=== PATIENT | male | born 1960 | race Caucasian/White ===

== ENCOUNTER 2018-12-16 15:04 | Inpatient (IN) | payer MEDICAID, OTHER ==
[~2018-12-16 15:04] MED LIST: Buffered Lidocaine 1% SYRIN* 1 ML/SYRINGE INTRADERM ONE; Lactated Ringers 1000 ML Bag* 1,000 ML IV SCH
[2018-12-16] MEDS ORDERED: fentaNYL* 50 MCG/ML 2 ML VIAL (100 MCG VIAL) ONE ×3 (16:18→20:28)
[2018-12-16] MEDS ORDERED: Midazolam* 1 MG/ML 2 ML VIAL (2 MG) ONE ×3 (16:18→19:41)
[2018-12-16] MEDS ORDERED: Propofol* 10 MG/ML 20 ML BTL ONE (16:19)
[2018-12-16] MEDS ORDERED: Naloxone* 0.4 MG/ML 1 ML VIAL IV PRN (16:41)
[2018-12-16] MEDS ORDERED: DiMENhydriNATE IV* 50 MG/ML VIAL IV PUSH PRN (16:41)
[2018-12-16] MEDS ORDERED: Ondansetron INJ* 2 MG/ML VIAL IV PRN ×2 (16:41→20:02)
[2018-12-16] MEDS ORDERED: Acetaminophen TAB* 325 MG PO PRN (16:41)
[2018-12-16] MEDS ORDERED: Dextrose 50% Syringe 50 ML* 25 GM/50 ML SYRINGE IV PUSH ONE (16:55)
[2018-12-16] MEDS ORDERED: Clindamycin 900 MG IVPREMIX(* 900 MG/50 ML SDV IV ONE (16:57)
[2018-12-16] MEDS ORDERED: Dextrose 50% Syringe 50 ML* 25 GM/50 ML SYRINGE ONE (16:58)
[2018-12-16] MEDS ORDERED: KETAMINE HCL* 50 MG/ML 10 ML VIAL ONE (19:11)
[2018-12-16] MEDS ORDERED: Diazepam INJ (NF) 5 MG/ML 10 ML VIAL (50 MG TOTAL) IV ONE (19:42)
[2018-12-16] MEDS ORDERED: Polyethylene Glycol 3350* 17 GM PACKET PO PRN (20:02)
[2018-12-16] MEDS ORDERED: diPHENhydraMINE IV* 50 MG/ML 1 ml VIAL (BENADRYL) IV PRN (20:02)
[2018-12-16] MEDS ORDERED: Ondansetron TAB* 4 MG PO PRN (20:02)
[2018-12-16] MEDS ORDERED: Bisacodyl SUPP* 10 MG SUPP PR PRN (20:02)
[2018-12-16] MEDS ORDERED: Magnesium Hydroxide LIQ* 30 ML UDC PO PRN (20:02)
[2018-12-16] MEDS ORDERED: oxyCODONE/Acetamin 5/325 MG* TAB PO ONE (20:09)
[2018-12-16] MEDS ORDERED: oxyCODONE/Acetamin 5/325 MG* TAB ONE (20:28)
[2018-12-16] MEDS: oxyCODONE/Acetamin 5/325 MG* TAB PO PRN (20:30)
[2018-12-16] MEDS: fentaNYL* 50 MCG/ML 2 ML VIAL (100 MCG VIAL) IV PRN ×2 (20:32→20:41)
[2018-12-16] MEDS: Diazepam TAB(*) 5 MG PO ONE ×2 (21:30→23:52)
[2018-12-16] MEDS ORDERED: Dextrose 50% Syringe 50 ML* 25 GM/50 ML SYRINGE IV PUSH PRN (21:57)
[2018-12-16] MEDS ORDERED: Albuterol/Ipratropium NEB.SOL* Albuterol 2.5 MG/Ipratropium 0.5 MG 3 ML INH PRN (21:58)
[2018-12-16] MEDS: Lactated Ringers 1000 ML Bag* 1,000 ML IV SCH (23:12)
[2018-12-16] MEDS: Morphine INJ* 2 MG/ML 1 ML SYRINGE (TWO MG - NEW SYRINGE VERSION) IV PRN (23:15)
[2018-12-16] MEDS: Acetaminophen TAB* 325 MG PO SCH (23:51)
[2018-12-17] MEDS: Magnesium Hydroxide LIQ* 30 ML UDC PO SCH ×3 (00:11→22:05)
[2018-12-17] MEDS: Docusate CAP* 100 MG PO SCH ×3 (00:11→22:04)
--- NOTE | 2018-12-17 00:22 | CONS ---
C: Dr. Angelic Fonseca; Dr. Micky Whalen * CONSULTATION REPORT: DATE OF CONSULT: 12/16/18 PRIMARY CARE PROVIDER: Dr. Angelic Fonseca. MY ATTENDING WHILE IN THE HOSPITAL: Dr. Lyndsay Metz. CONSULTING PROVIDER: Dr. Micky Whalen. REASON FOR CONSULTATION: Co-management of comorbid medical conditions. HISTORY OF PRESENT ILLNESS: Mr. Houston is a 58-year-old male with past medical history significant for cerebral palsy with left hemiplegia, diabetes, COPD and hypertension, who is status post a right patellar tendon repair. The patient was examined in the postoperative period. The patient states that the pain in his leg is 9/10 despite the fact that he has not regained total feeling in his leg from his spinal anesthesia. The patient states that the pain medication he has been given has not helped at all. The patient denies chest pain, shortness of breath, nausea, vomiting, dizziness, palpitations. The patient has not had any recent illnesses, any sick contacts, any fevers or chills, any decrease in exercise tolerance although the patient does use a wheelchair for the most of his mobility. The patient has not taken any insulin today. The patient took his glargine insulin last night and did not take any of his medications this morning. The patient denies any wheezing, cough, or swelling in his legs or difficulty breathing when lying flat. PAST MEDICAL HISTORY: Cerebral palsy, left hemiplegia, diabetes, hypertension, depression, COPD on oxygen, hypothyroidism. PAST SURGICAL HISTORY: History of 2 triple arthrodesis, history of right Achilles tendon repair, appendectomy, right orchiectomy. MEDICATIONS: 1. Ibuprofen 400 mg p.o. q.8 hours as needed. 2. Atorvastatin 80 mg p.o. at bedtime. 3. Omeprazole 20 mg p.o. b.i.d. 4. Multivitamin 1 tab p.o. q.a.m. 5. Levothyroxine 137 mcg p.o. q.a.m. 6. Mirapex 0.25 mg p.o. q.a.m. 7. Dyazide 37.5/25 one cap p.o. q.a.m. 8. Aspirin 81 mg p.o. daily. 9. Metformin 500 mg p.o. t.i.d. 10. Lisinopril 10 mg p.o. q.a.m. 11. Tradjenta 5 mg p.o. q.p.m. 12. Tylenol 500 mg p.o. q.8 hours as needed. 13. Docusate 1 tab p.o. b.i.d. as needed. 14. Viagra 25 mg p.o. as needed. 15. Fiber-Lax 625 mg p.o. q.a.m. 16. Sertraline 20 mg p.o. q.a.m. 17. Clonazepam 0.5 mg p.o. t.i.d. 18. Meloxicam 50 mg p.o. q.a.m. 19. Baclofen 20 mg p.o. t.i.d. 20. Gabapentin 300 mg p.o. t.i.d. 21. Hydroxyzine 25 to 50 mg p.o. b.i.d. as needed. 22. Insulin glargine 15 units subcutaneous at bedtime. ALLERGIES: BENZTROPINE, HALOPERIDOL, HYDROMORPHONE, NSAIDS, MORPHINE, LORATADINE, SELDANE, PENICILLINS, CODEINE, COGENTIN, IV DYE, LACTOSE. FAMILY HISTORY: The patient's mother of COPD. The patient's father of old age. The patient has 3 siblings, all of whom have only orthopedic complaints. SOCIAL HISTORY: The patient still smokes 5 cigarettes a day. The patient has a long history of smoking, but he cannot quantify in pack years. The patient denies history of alcohol or drug abuse. The patient's surrogate decision maker will be his friend, Dora Mendoza. The patient is wheelchair bound and does not work. REVIEW OF SYSTEMS: A 14-point review of systems was reviewed and is negative, except as above in the HPI. PHYSICAL EXAM: General: The patient is a 58-year-old male who appears stated age and sitting comfortably in bed, in no acute distress. Vital Signs: Temperature 98.9, respiratory rate 16, oxygen saturation 97% on 2 L, blood pressure 143/74, pulse rate 65. Neck: Supple, nontender. No lymphadenopathy. No carotid bruits auscultated. No JVD. Cardiac: Regular rate and rhythm. No clicks, murmurs, gallops, or rubs. Pulses are 2+ in bilateral dorsalis pedis , posterior tibialis and radial areas. Respiratory: Clear to auscultation bilaterally. No wheezes, slight expiratory rhonchi heard in the bilateral lower lobes. No adventitious lung sounds. Abdomen: Soft, nontender, and nondistended. Bowel sounds present in all 4 quadrants. No hepatosplenomegaly. No abdominal bruits auscultated. No hepatojugular reflux. Genitourinary: No suprapubic or CVA tenderness. Skin: Clean, dry and intact. No rash. Right knee covered in bulky dressing. Neuro: Cranial nerves II through XII intact. Left arm and leg atrophied with 1/5 strength. Decreased sensation in the right lower extremity. Psychiatric: Pleasant and cooperative. DIAGNOSTIC STUDIES/LAB DATA: Laboratory data preoperatively not performed. ASSESSMENT AND PLAN: Impression: Mr. Houston is a 58-year-old male with past medical history significant for cerebral palsy, diabetes mellitus type 2, chronic obstructive pulmonary disease and hypertension, who is status post a right patellar tendon repair and is doing well. 1. Postoperative state. Management per Orthopedics. Continue with pain control, bowel regimen, fluids until the patient is able to take adequate oral intake, check H and H, platelet count, and BMP in the morning. The patient will have PT and OT. 2. Cerebral palsy with left hemiplegia. Physical therapy and occupational therapy as above to manage chronic problems of the patient. 3. Diabetes. The patient had hypoglycemia in the postoperative period at 65, which resolved with eating. The patient most recently took 85 units of Lantus approximately 24 hours ago. Now, the patient will be continued on a decreased dose of his Lantus given likely decreased oral intake as well as sliding scale insulin. The patient can be resumed on his home antihyperglycemic medications at discharge. 4. Hypertension. We will hold the patient's Dyazide and lisinopril at this time given propensity for hypotension with spinal anesthesia. These may resumed when indicated. 5. Depression. Continue the patient's Celexa. The patient is currently euthymic. 6. Hypothyroidism. Continue the patient's Synthroid. 7. Chronic obstructive pulmonary disease. The patient takes no medications for this at home. The patient will have albuterol as needed. 8. DVT prophylaxis. The patient will be on aspirin 325 mg p.o. b.i.d. 9. Hyperlipidemia. Continue the patient's Lipitor. 10. FEN. The patient will have a regular unrestricted diet and fluids until able to tolerate adequate oral intake. 11. Disposition per Orthopedics. 12. Code status: The patient would like to be a full code. TIME SPENT: Approximately 60 minutes was spent on this consultation, 30 of which was spent [id number] with the patient, obtaining history and physical, and discussing treatment plan. Plan was discussed with my attending, Dr. Lyndsay Metz, and she is in agreement. Thank you very much for this consultation. We will continue to follow along with you. Feel free to call with any questions. FORD RIVERA [id number]/[facility] #: [id number] SIMONE
[2018-12-17] MEDS: Clindamycin 600 MG IVPREMIX(* 600 MG/50 ML SDV IV SCH ×3 (02:26→19:38)
[2018-12-17] MEDS: Acetaminophen TAB* 325 MG PO SCH ×3 (05:26→22:05)
[2018-12-17] MEDS: Levothyroxine TAB* 137 MCG TAB PO SCH (05:26)
[2018-12-17 06:45] LABS: Hematocrit 36 % (36-46); Hemoglobin 11.7 g/dL (14.0-18.0); Mean Platelet Volume 7.9 fL (7.4-10.4); Platelet Count 252 10^3/uL (150-450)
[2018-12-17 07:00] LABS: BUN/Creatinine Ratio 26.4 (8-20); Calcium 8.7 mg/dL (8.6-10.3); EGFR African American 82.6 (>60); EGFR Non-African American 68.3 (>60); Potassium 4.6 mmol/L (3.5-5.0)
--- NOTE | 2018-12-17 07:05 | PN ---
Progress Note - Progress Note Date of Service: 12/17/18 SOAP: Subjective: resting comfortably. pain well controlled Objective: Vital Signs Temp Pulse Resp BP Pulse Ox 99.2 F 66 16 147/71 100 12/17/18 00:16 12/17/18 00:16 12/17/18 00:19 12/17/18 00:16 12/17/18 00:16 Laboratory Last Values Hgb 11.7 g/dL (14.0-18.0) L 12/17/18 06:06 Hct 36 % (36-46) 12/17/18 06:06 Plt Count 252 10^3/uL (150-450) 12/17/18 06:06 MPV 7.9 fL (7.4-10.4) 12/17/18 06:06 Sodium 137 mmol/L (135-145) 12/17/18 06:06 Potassium 4.6 mmol/L (3.5-5.0) 12/17/18 06:06 Chloride 103 mmol/L (101-111) 12/17/18 06:06 Carbon Dioxide 27 mmol/L (22-32) 12/17/18 06:06 Anion Gap 7 mmol/L (2-11) 12/17/18 06:06 BUN 29 mg/dL (6-24) H 12/17/18 06:06 Creatinine 1.10 mg/dL (0.67-1.17) 12/17/18 06:06 Est GFR ( Amer) 82.6 (>60) 12/17/18 06:06 Est GFR (Non-Af Amer) 68.3 (>60) 12/17/18 06:06 BUN/Creatinine Ratio 26.4 (8-20) H 12/17/18 06:06 Glucose 257 mg/dL (70-100) H 12/17/18 06:06 POC Glucose (mg/dL) 124 mg/dL (70-100) H 12/16/18 20:11 Calcium 8.7 mg/dL (8.6-10.3) 12/17/18 06:[address]; dressing c/d/i; patient ablet o dorsi flex, 2+ DP pulse and intact sensation Assessment: s/p right patella tendon repair; POD#1 Plan: 1) TTWB RLE for transfers, patient is wheelchair bound 2) immobilizer in place at all times 3) hospitalist co-managing 4) ASA 325MG BIS for DVT prophyalxis 5) post-op Abx for 48 hours
[2018-12-17] MEDS: oxyCODONE/Acetamin 5/325 MG* TAB PO PRN ×2 (07:34→14:37)
[2018-12-17] MEDS: Aspirin TAB* 325 MG PO SCH ×2 (07:35→22:05)
--- NOTE | 2018-12-17 08:40 | PN ---
Subjective Date of Service: 12/17/18 Interval History: Mr. Houston reports feeling tired today but otherwise well. He has a little flair of pain to his right knee from time to time but it is manageable on the current pain med regimen. He denies other complaint including chest pain, SOB, nausea, or abdominal pain. Objective Active Medications: Acetaminophen (Tylenol Tab*) 975 mg PO Q8H [facility]OX[facility] Albuterol (Ventolin 2.5 Mg/3 Ml Neb.Kennedi*) 2.5 mg INH Q4H PRN Aspirin (Aspirin Tab*) 325 mg PO 0900,2100 [facility] Atorvastatin Calcium (Lipitor*) 80 mg PO BEDTIME [facility] Baclofen (Lioresal Tab*) 20 mg PO TID [facility]OX[facility]NA Bisacodyl (Dulcolax Supp*) 10 mg VT DAILY PRN Calcium Polycarbophil (Fibercon Tab*) 625 mg PO QAM [facility] Dextrose (D50w Syringe 50 Ml*) 12.5 gm IV PUSH .FOR FS < 60 - SS PRN Diazepam (Valium Tab(*)) 5 mg PO Q8H PRN Diphenhydramine HCl (Benadryl Iv*) 12.5 mg IV Q6H PRN Docusate Sodium (Colace Cap*) 100 mg PO BID [facility] Gabapentin (Neurontin Cap(*)) 300 mg PO TID [facility] Clindamycin HCl/Dextrose (Cleocin 600 Mg Ivpremix(*) Sdv) 600 mg in 50 mls @ 100 mls/hr IV Q8H [facility] Lactated Ringer's (Lactated Ringers 1000 Ml Bag*) 1,000 mls @ 100 mls/hr IV PER RATE [facility] Insulin Glargine (Lantus(*)) 60 units SUBCUT BEDTIME [facility] Insulin Human Lispro (Humalog*) 0 units SUBCUT ACHS [facility]OX[facility]NA; Protocol Lactulose (Lactulose*) 30 ml PO Q6H PRN Levothyroxine Sodium (Synthroid Tab*) 137 mcg PO 0600 [facility] Magnesium Hydroxide (Milk Of Magnesia Liq*) 30 ml PO BID [facility] Magnesium Hydroxide (Milk Of Magnesia Liq*) 30 ml PO Q6H PRN Morphine Sulfate (Morphine Inj (Syringe))*) 2 mg IV Q2H PRN Ondansetron HCl (Zofran Inj*) 4 mg IV Q6H PRN Ondansetron HCl (Zofran Tab*) 4 mg PO Q6H PRN Oxycodone/Acetaminophen (Percocet 5/325 Tab*) 1 tab PO Q4H PRN Oxycodone/Acetaminophen (Percocet 5/325 Tab*) 2 tab PO Q4H PRN Pantoprazole Sodium (Protonix Tab*) 40 mg PO BID [facility] Polyethylene Glycol/Electrolytes (Miralax*) 17 gm PO DAILY PRN Pramipexole Dihydrochloride (Mirapex Tab*) 0.25 mg PO QAM [facility] Sertraline HCl (Zoloft*) 200 mg PO QAM [facility] Vital Signs: Temp Pulse Resp BP Pulse Ox 98.1 F 82 20 129/59 95 12/17/18 07:30 12/17/18 07:30 12/17/18 07:53 12/17/18 07:30 12/17/18 07:53 Oxygen Devices in Use Now: None Appearance: male sitting up in chair in NAD Ears/Nose/Mouth/Throat: Mucous Membranes Moist Neck: Trachea Midline Respiratory: Symmetrical Chest Expansion and Respiratory Effort, Clear to Auscultation Cardiovascular: NL Sounds; No Murmurs; No JVD, No Edema Abdominal: NL Sounds; No Tenderness; No Distention Lymphatic: No Axillary Adenopathy Skin: No Rash or Ulcers Neurological: Alert and Oriented x 3, - - Atrophy noted to left arm and leg, 1/ 5 strength. Strength intact R UE, CMS intact R LE Nutrition: Taking PO's Result Diagrams: 12/17/18 06:06 12/17/18 06:06 Assess/Plan/Problems-Billing Assessment: Mr. Houston is a 58 yo male with a PMH of cerebral palsy, left hemiplegia, hypertension, depression, CHUY on CPAP who was admitted on for a right patellar tendon repair secondary to fall from wheelchair. - Patient Problems (1) Patellar tendon rupture Comment: - POD # 1 s/p repair - Management per ortho - TTWB R LE for transfers, patient is wheelchair bound, immobilizer on at all times (2) Hypertension Comment: - SBP 120s. - Hold triamterine/hctz and lisinopril for now (3) Diabetes Comment: - BGs 210-260s - Increase lantus to home dose (85 units), continue SSI - Hold tradjenta and metformin until discharge (4) Depression Comment: - Continue sertraline (5) Hypothyroidism Comment: - Continue levothyroxine (6) Hyperlipidemia Comment: - Continue atorvastatin (7) Cerebral palsy Comment: - Continue baclofen, diazepam (8) CHUY (obstructive sleep apnea) Comment: - Continue cpap (9) DVT prophylaxis Comment: - Aspirin per ortho. (10) Full code status Comment: Status and Disposition: Inpatient with disposition per ortho. Anticipate need for short term rehab.
[2018-12-17] MEDS ORDERED: clonazePAM TAB(*) 0.5 MG PO SCH (09:00)
[2018-12-17] MEDS: Gabapentin CAP(*) 300 MG PO SCH ×3 (09:09→22:04)
[2018-12-17] MEDS: Pramipexole TAB* 0.125 MG PO SCH (09:09)
[2018-12-17] MEDS: Pantoprazole TAB * 40 MG TAB PO SCH ×2 (09:09→22:04)
[2018-12-17] MEDS: Baclofen TAB* 20 MG PO SCH ×3 (09:09→22:04)
[2018-12-17] MEDS: Calcium Polycarbophil TAB* 625 MG PO SCH (09:09)
[2018-12-17] MEDS: Sertraline* 100 MG TAB PO SCH (09:09)
[2018-12-17] MEDS: Insulin LISPRO* 1 UNITS UNIT SUBCUT SCH ×4 (09:11→23:23)
--- NOTE | 2018-12-17 18:15 | PN ---
Progress Note - Progress Note Date of Service: 12/17/18 Note: Called to bedside for patient complaining of SOB and chest heaviness. On exam, patient not in distress or overtly short of breath. Reports he was feeling well until about 30 minutes ago when he started to feel chest heaviness and SOB. He confirms abdominal distention with some generalized tenderness to palpation. Lungs with minimal wheezing bilaterally otherwise good aeration. Heart with S1, S2, no MRG, regular. Vitals stable, not hypoxic or tachycardic. Plan for EKG, troponin. Eval abd with 2 view xray. Treat wheezing with albuterol neb. Monitor closely.
[2018-12-17] MEDS: Albuterol 2.5 MG/3 ML NEB.SOL* (0.083%) INH PRN (18:19)
[2018-12-17] MEDS: Lactated Ringers 1000 ML Bag* 1,000 ML IV SCH (20:42)
[2018-12-17] MEDS ORDERED: Insulin GLARGINE(*) 1 UNITS UNIT SUBCUT SCH (21:00)
[2018-12-17] MEDS: Atorvastatin* 80 MG TAB PO SCH (22:03)
[2018-12-17] MEDS: Insulin GLARGINE(*) 1 UNITS UNIT SUBCUT SCH (22:07)
[2018-12-18] MEDS: oxyCODONE/Acetamin 5/325 MG* TAB PO PRN ×4 (05:10→22:08)
[2018-12-18] MEDS: Acetaminophen TAB* 325 MG PO SCH ×3 (06:03→21:34)
[2018-12-18] MEDS: Levothyroxine TAB* 137 MCG TAB PO SCH (06:06)
[2018-12-18 06:22] LABS: Hematocrit 35 % (36-46); Hemoglobin 11.4 g/dL (14.0-18.0); Platelet Count 222 10^3/uL (150-450)
[2018-12-18] MEDS: Magnesium Hydroxide LIQ* 30 ML UDC PO SCH ×2 (07:53→22:12)
[2018-12-18] MEDS: Aspirin TAB* 325 MG PO SCH ×2 (07:54→22:10)
[2018-12-18] MEDS: Pramipexole TAB* 0.125 MG PO SCH (07:54)
[2018-12-18] MEDS: Diazepam TAB(*) 5 MG PO PRN (07:54)
[2018-12-18] MEDS: Baclofen TAB* 20 MG PO SCH ×3 (07:54→22:08)
[2018-12-18] MEDS: Docusate CAP* 100 MG PO SCH ×2 (07:54→22:10)
[2018-12-18] MEDS: Pantoprazole TAB * 40 MG TAB PO SCH ×2 (07:54→22:11)
[2018-12-18] MEDS: Sertraline* 100 MG TAB PO SCH (07:54)
[2018-12-18] MEDS: Gabapentin CAP(*) 300 MG PO SCH ×3 (07:54→22:10)
[2018-12-18] MEDS: Calcium Polycarbophil TAB* 625 MG PO SCH (07:54)
--- NOTE | 2018-12-18 08:34 | PN ---
Progress Note - Progress Note Date of Service: 12/18/18 SOAP: Subjective: resting comfortably, increased right knee this am Objective: Vital Signs Temp Pulse Resp BP Pulse Ox 99.6 F 79 22 113/60 91 12/18/18 03:36 12/18/18 03:36 12/18/18 07:54 12/18/18 03:36 12/18/18 03:36 Laboratory Last Values Hgb 11.4 g/dL (14.0-18.0) L 12/18/18 05:48 Hct 35 % (36-46) L 12/18/18 05:48 Plt Count 222 10^3/uL (150-450) 12/18/18 05:48 MPV 8.0 fL (7.4-10.4) 12/18/18 05:48 Sodium 137 mmol/L (135-145) 12/17/18 06:06 Potassium 4.6 mmol/L (3.5-5.0) 12/17/18 06:06 Chloride 103 mmol/L (101-111) 12/17/18 06:06 Carbon Dioxide 27 mmol/L (22-32) 12/17/18 06:06 Anion Gap 7 mmol/L (2-11) 12/17/18 06:06 BUN 29 mg/dL (6-24) H 12/17/18 06:06 Creatinine 1.10 mg/dL (0.67-1.17) 12/17/18 06:06 Est GFR ( Amer) 82.6 (>60) 12/17/18 06:06 Est GFR (Non-Af Amer) 68.3 (>60) 12/17/18 06:06 BUN/Creatinine Ratio 26.4 (8-20) H 12/17/18 06:06 Glucose 257 mg/dL (70-100) H 12/17/18 06:06 POC Glucose (mg/dL) 148 mg/dL (70-100) H 12/18/18 07:37 Calcium 8.7 mg/dL (8.6-10.3) 12/17/18 06:06 Troponin I 0.01 ng/mL (<0.04) 12/17/18 18:20 incision: c/d; dressing changed PE: NVI Assessment: s/p right patella tendon repair Plan: 1) PT/OT; TTWB for transfers, leg in extension/immobilizer at all times 2) ASA 325MG BID for DVT prophylaxis 3) post-op abx for 48 hours
--- NOTE | 2018-12-18 08:51 | PN ---
Subjective Date of Service: 12/18/18 Interval History: Mr. Houston had an episode last evening of SOB and chest discomfort which he states has resolved. He reports that his last BM was on Wednesday but feels that his abdomen is a bit distended. He is tolerating oral intake well. He denies other complaint including chest pain, SOB, nausea, or abdominal pain. He reports that his knee pain is well controlled. Objective Active Medications: Acetaminophen (Tylenol Tab*) 975 mg PO Q8H [facility] Albuterol (Ventolin 2.5 Mg/3 Ml Neb.Kennedi*) 2.5 mg INH Q4H PRN Aspirin (Aspirin Tab*) 325 mg PO 0900,2100 [facility] Atorvastatin Calcium (Lipitor*) 80 mg PO BEDTIME [facility] Baclofen (Lioresal Tab*) 20 mg PO TID [facility] Bisacodyl (Dulcolax Supp*) 10 mg IN DAILY PRN Calcium Polycarbophil (Fibercon Tab*) 625 mg PO QAM [facility] Dextrose (D50w Syringe 50 Ml*) 12.5 gm IV PUSH .FOR FS < 60 - SS PRN Diazepam (Valium Tab(*)) 5 mg PO Q8H PRN Diphenhydramine HCl (Benadryl Iv*) 12.5 mg IV Q6H PRN Docusate Sodium (Colace Cap*) 100 mg PO BID [facility] Gabapentin (Neurontin Cap(*)) 300 mg PO TID [facility] Lactated Ringer's (Lactated Ringers 1000 Ml Bag*) 1,000 mls @ 100 mls/hr IV PER RATE [facility] Insulin Glargine (Lantus(*)) 85 units SUBCUT BEDTIME [facility] Insulin Human Lispro (Humalog*) 0 units SUBCUT ACHS [facility]; Protocol Lactulose (Lactulose*) 30 ml PO Q6H PRN Levothyroxine Sodium (Synthroid Tab*) 137 mcg PO 0600 [facility] Magnesium Hydroxide (Milk Of Magnesia Liq*) 30 ml PO BID [facility] Magnesium Hydroxide (Milk Of Magnesia Liq*) 30 ml PO Q6H PRN Morphine Sulfate (Morphine Inj (Syringe))*) 2 mg IV Q2H PRN Ondansetron HCl (Zofran Inj*) 4 mg IV Q6H PRN Ondansetron HCl (Zofran Tab*) 4 mg PO Q6H PRN Oxycodone/Acetaminophen (Percocet 5/325 Tab*) 1 tab PO Q4H PRN Oxycodone/Acetaminophen (Percocet 5/325 Tab*) 2 tab PO Q4H PRN Pantoprazole Sodium (Protonix Tab*) 40 mg PO BID [facility] Polyethylene Glycol/Electrolytes (Miralax*) 17 gm PO DAILY PRN Pramipexole Dihydrochloride (Mirapex Tab*) 0.25 mg PO QAM [facility] Sertraline HCl (Zoloft*) 200 mg PO QAM [facility] Vital Signs: Temp Pulse Resp BP Pulse Ox 99.6 F 79 22 113/60 91 12/18/18 03:36 12/18/18 03:36 12/18/18 07:54 12/18/18 03:36 12/18/18 03:36 Oxygen Devices in Use Now: Nasal Cannula Appearance: Male lying in bed in NAD Eyes: No Scleral Icterus Ears/Nose/Mouth/Throat: Mucous Membranes Moist Neck: Trachea Midline Respiratory: Symmetrical Chest Expansion and Respiratory Effort, Clear to Auscultation Cardiovascular: NL Sounds; No Murmurs; No JVD, No Edema Abdominal: NL Sounds; No Tenderness; No Distention Extremities: - - + CMS right LE Neurological: Alert and Oriented x 3 - L UE/LE atrophic Nutrition: Taking PO's Result Diagrams: 12/18/18 05:48 12/17/18 06:06 Assess/Plan/Problems-Billing Assessment: Mr. Houston is a 58 yo male with a PMH of cerebral palsy, left hemiplegia, hypertension, depression, CHUY on CPAP who was admitted on for a right patellar tendon repair secondary to fall from wheelchair. - Patient Problems (1) Patellar tendon rupture Comment: - POD # 1 s/p repair - Management per ortho - TTWB R LE for transfers, patient is wheelchair bound, immobilizer on at all times - Continue pain meds with bowel regimen, multiple bowel agents given today (2) SOB (shortness of breath) Comment: - Resolved - Episode of SOB with CP last evening, some wheezing noted, albuterol given, no wheezing noted today - Trop 0.01, no evidence of ischemia on EKG (3) Hypertension Comment: - SBP 120-140s. - Resume triamterine/hctz and lisinopril (4) Diabetes Comment: - BGs 140-220s - Continue home dose lantus, continue SSI - Hold tradjenta and metformin until discharge (5) Depression Comment: - Continue sertraline (6) Hypothyroidism Comment: - Continue levothyroxine (7) Hyperlipidemia Comment: - Continue atorvastatin (8) Cerebral palsy Comment: - Continue baclofen, diazepam (9) CHUY (obstructive sleep apnea) Comment: - Continue cpap (10) DVT prophylaxis Comment: - Aspirin per ortho. (11) Full code status Comment: Status and Disposition: Inpatient with disposition per ortho. Anticipate need for short term rehab.
--- NOTE | 2018-12-18 09:04 | OP ---
OPERATIVE NOTE: DATE OF OPERATION: 12/16/18 DATE OF : 56 SURGEON: Micky Whalen MD. MARKETING PROFESSOR: FORD Lilly. A physician carpenter assistant was required for the length of the procedure for assistance with positioning, instrumentation, retraction, and closure. ANESTHESIOLOGIST: Dr. Blayne oBne. ANESTHESIA: Spinal anesthesia. PRE-OP DIAGNOSES: 1. Right patellar tendon rupture, subacute. 2. Right distal patella fracture. 3. Cerebral palsy. POST-OP DIAGNOSIS: 1. Right patellar tendon rupture, subacute. 2. Right distal patella fracture. 3. Cerebral palsy. OPERATIVE PROCEDURE: 1. Right open patellar tendon repair, subacute. 2. Modifier #22, given the usual, complex nature of the procedure making the procedure take twice as long as it would normally and require much more thought and preparation. The reason for the complexity were the subacute nature of this injury with the surgery happening 4 weeks and 3 days after the injury was sustained; as well this was not a simple patella tendon rupture as it was actually a fracture of the distal most nose of the patella. So, some removal of bone from the patella was required, as well there was some small amount of comminuted fracture of bone off the inferolateral patella as well the patient has high muscle tone given his cerebral palsy, although the cerebral palsy predominantly affects its contralateral left upper and left lower extremity. ANTIBIOTICS: Clindamycin 900 mg IV. IV FLUIDS: 1500 cc crystalloid. TOURNIQUET TIME: 106 minutes at 300 mmHg. [id number] TIME: 109 minutes. SPECIMEN: None. IMPLANTS: Mitek Gryphon x1, double loaded was utilized, as was 3 suture tunnels in the patella using FiberWire #5 suture from [employer]. ESTIMATED BLOOD LOSS: Minimal. COMPLICATIONS: None. INDICATIONS: The patient is a 58-year-old with cerebral palsy that affects his left upper and left lower extremity such that he is wheelchair bound. Impressively, the patient is able to live independently, but he requires the help of an aide who visits him daily and helps him with transfer from one wheelchair to another and presumably from wheelchair to bed and vice versa. The patient fell on 11/15/18. He was seen by physician offices at [facility] twice. Eventually, he was referred to the Orthopedic Surgery Clinic there and given a diagnosis of patella tendon rupture. He was noted to have a significant proximal migration of the patella. The patient's mechanism had been a fall directly on the anterior aspect of the right knee. When I saw him in the clinic, several days, 3 days preoperatively, the patient had a palpable defect about the proximal patellar tendon, significant elevation of the patella was palpable. The patient had profound weakness with knee extension. The patient's medical history is also significant for bipolar disorder, diabetes, and seizure disorder. On x-ray, we noticed a significant superiorization of the patella, but also two possible calcifications of bony fragments about the distal end of the joint space, near the tibial tubercle. I ordered a stat MRI and planned on surgery as soon as possible because we typically like to do patellar tendon repair surgery within 2 weeks of the injury itself. MRI confirmed the diagnosis. While the radiologist read a midsubstance tear, I read it and thought that it was a proximal patellar tendon tear. I noted at least 1 possible fragment of bone present. The patient was scheduled for urgent surgery and so I did his case at the end of day in the evening of 12/16/18. Discussed risks and potential complications with the patient. Given that the patient is living independently and with his functional limitations, we presume he will be admitted postoperatively. DESCRIPTION OF PROCEDURE: In preop holding, the patient signed a written consent. Operative extremity was marked in the preoperative holding. Anesthesia decided, given the patient's multiple problems, that a spinal anesthesia would be most appropriate. The patient was taken back to the operating room. On the operating room table, the anesthesia team performed spinal anesthesia. The patient was then laid supine. A big blanket bump placed under the right hemipelvis. The right lower extremity was prepped and draped. Surgical time-out was performed. Esmarch applied and tourniquet at the thigh was elevated at 300 mmHg. I made an anterior midline longitudinal skin from proximal to the patella to the distal tibial tubercle. I dissected down to the patella. Distal to the patella, there was a significant ball of scar tissue, bursal type at first that I noted. I then noted from the tibial tubercle there was clearly in fact a reasonable patellar tendon tissue. I first sought out to define my tissue planes. I identified the patella as well as the quadriceps tendon proximal to it. I identified the medial and lateral retinaculum which had both sustained transverse tears or lacerations at the level of the patellar tendon injury. I next went to the distal end of the patellar tendon. I mobilized the patellar tendon that had clearly undulated and scarred down distally and shortened. I lengthened it by freeing it up from the scar tissue. At this point, I measured the length of the patellar tendon and I measured it to be 4 to 5 cm long. This was confirmation that the patellar tendon had torn off the patella itself, rather than a mid substance tear and this is a normal length of patellar tendon. I next evaluated the bursal type scar tissue between the patella and the patellar tendon, using finger safe dissection I learned that most of this was of poor quality bursal tissue that practically evaporated. Then there was some significant scar tissue, part of it was from the infrapatellar fat pad. I removed this. I identified the anterior horns of the medial and lateral menisci and respected these. In particular lateral, there was a gout band of scar tissue running longitudinally in the anterior aspect of the knee. This was thought to just be a mixture of fat and scar tissue that had developed as the patient's knee had been resting in a 90- degree flexed posture with significant pain for 4-1/2 weeks. No vital structures were involved and I removed this scar tissue. Evaluating the state of the patellar tendon, I liked what I saw. Pulling the patella distally on the patellar tendon proximally I thought this patellar tendon was indeed repairable. I evaluated the proximal extent of the patellar tendon and noted a fragment of bone in it. It was clear that this was the distal most tip of the nose of the patella. This was much better evidence that this was clearly a proximal rupture of the patellar tendon or really a patella fracture, with a functional tendon rupture. I next proceeded with my patellar tendon repair. I debrided the anterior aspect of the patella. I did so with a curette, rongeur, and a jacy. I noted that the patient had a very gracile, long and thin patella. However, more than that he also appeared to have some of the distal lateral patella missing, consistent with some comminuted fragments of bone being lost there. I had looked throughout the knee for any fragments from this part of the patella and did not find any. I next made my 3 bone tunnels with a 2 mm drill. I placed sutures in these tunnels, each PDS 2.0. These would be passing sutures later. I then placed 2 [place] stitches in the patellar tendon using FiberWire #5 suture. I noted that the patellar tendon was longer medially than laterally. I passed sutures from the tunnels in the patella. I really liked the patellar tendon coming to bone medially. I did not like it as much coming to the most lateral of the 3 tunnels. Therefore, I re-drilled the lateral tunnel a little bit closer to the central tunnel. I then replaced a passing stitch and a FiberWire #5 stitch. With the knee fully extended, and the FiberWire #5 sutures manipulated proximally, so that there would be no tissue bridge, I tied my knots. This brought the medial 80% of the tendon excellently to the bone. I would say the lateral most 20% did not quite reach bone. I, therefore, reinforced the lateral side of the repair with 1 Mitek Gryphon suture anchor, double loaded. I placed this more superficial than the bone tunnels in the patella. I placed 2 horizontal mattress stitches in the patellar tendon laterally and this brought the tendon to bone. Irrigation. I next placed a significant volume of stitches using Ethibond #1 suture, figure -of- eight, in the medial retinaculum, the lateral retinaculum and some tissue just superficial to the patella. I chose permanent suture and a high volume of sutures for retinaculum repair given this patient's cerebral palsy and limited mobility, as well as the subacute nature of this tear and repair, such that it would give a significant amount of strength to this repair. Irrigation. Closure of the subcutaneous tissue with buried simple stitches using Vicryl 2-0 suture, closure of the skin with mazin. Xeroform, 4x4s, ABDs, sterile Webril, Mikie bandage from foot to proximal thigh. Tourniquet was dropped. The patient was placed in a knee immobilizer and the knee immobilizer was taped in place. The patient was lightened of sedation and brought to the PACU. DISPOSITION: The patient was admitted postoperatively as we expected. He was admitted for pain control, physical therapy, and medical management. Hospitalist service was consulted. Given the patient's diabetes and multiple medical problems, I placed him on clindamycin 600 mg IV q.8 hours x48 hours postoperatively. I placed him on a standing dose of Valium 500 mg q.8 hours, as my experience is that patella tendon and quadriceps tendon repair patients are significantly painful postoperatively with much muscle spasms. The patient will also received Percocet and morphine as needed for pain. The Valium may help with the cerebral palsy as well. The patient will obtain physical and occupational therapy. His first dressing change will be 3 days postoperatively. The patient will remain in a knee immobilizer at all times in the right lower extremity. He will be only toe-touch weightbearing, right lower extremity, for transfers. I plan on not starting any therapy with that right knee for at least 4 weeks postoperatively. I am less concerned about reestablishing every last bit of knee flexion, range of motion. I am more concerned with the drilling and repair that it does not re - rupture. Given how well the tissues had tightened up preoperatively, the patient's repair was a little bit tighter than these are sometimes. I ranged the patient' s knee after the repair just from 0 to 20 degrees. This did not disrupt any of the repair whatsoever. It was also prior to the retinaculum repair. So, the patient safely ranges only 0 to 20 degrees. I anticipate, however, that this patient should do very well. I will see the patient in 10 to 14 days postoperatively in the clinic. [id number]/[facility] #: [id number] SIMONE
[2018-12-18] MEDS: Insulin LISPRO* 1 UNITS UNIT SUBCUT SCH ×4 (09:44→22:13)
[2018-12-18] MEDS: Atorvastatin* 80 MG TAB PO SCH (22:11)
[2018-12-18] MEDS: Insulin GLARGINE(*) 1 UNITS UNIT SUBCUT SCH (22:12)
[2018-12-18] MEDS: Albuterol 2.5 MG/3 ML NEB.SOL* (0.083%) INH PRN (22:20)
[2018-12-19 05:25] LABS: Hematocrit 35 % (36-46); Hemoglobin 11.5 g/dL (14.0-18.0); Mean Platelet Volume 7.6 fL (7.4-10.4); Platelet Count 223 10^3/uL (150-450)
[2018-12-19] MEDS: Levothyroxine TAB* 137 MCG TAB PO SCH (05:26)
[2018-12-19] MEDS: oxyCODONE/Acetamin 5/325 MG* TAB PO PRN ×4 (05:29→21:35)
[2018-12-19] MEDS: Acetaminophen TAB* 325 MG PO SCH ×3 (05:32→21:52)
[2018-12-19] MEDS: Docusate CAP* 100 MG PO SCH ×2 (08:06→21:35)
[2018-12-19] MEDS: Aspirin TAB* 325 MG PO SCH ×2 (08:06→21:35)
[2018-12-19] MEDS: Pramipexole TAB* 0.125 MG PO SCH (08:06)
[2018-12-19] MEDS: Triamterene/HCTZ 37.5-25 MG* CAP PO SCH (08:06)
[2018-12-19] MEDS: Lisinopril TAB* 10 MG PO SCH (08:06)
[2018-12-19] MEDS: Sertraline* 100 MG TAB PO SCH (08:06)
[2018-12-19] MEDS: Baclofen TAB* 20 MG PO SCH ×3 (08:06→21:35)
[2018-12-19] MEDS: Gabapentin CAP(*) 300 MG PO SCH ×3 (08:06→21:34)
[2018-12-19] MEDS: Calcium Polycarbophil TAB* 625 MG PO SCH (08:07)
[2018-12-19] MEDS: Pantoprazole TAB * 40 MG TAB PO SCH ×2 (08:07→21:36)
[2018-12-19] MEDS: Magnesium Hydroxide LIQ* 30 ML UDC PO SCH ×2 (08:07→21:36)
[2018-12-19] MEDS: Insulin LISPRO* 1 UNITS UNIT SUBCUT SCH ×4 (09:02→21:52)
[2018-12-19] MEDS: Morphine INJ* 2 MG/ML 1 ML SYRINGE (TWO MG - NEW SYRINGE VERSION) IV PRN (14:10)
--- NOTE | 2018-12-19 14:51 | PN ---
Progress Note - Progress Note Date of Service: 12/19/18 SOAP: Subjective: [POD #3, R patellar tendon repair. Pt doing well, pain controlled with meds. Pt states he wishes to go to [facility] for [facility]. No CP, SOB, N/V/D. ] Objective: [ Vital Signs Temp Pulse Resp BP Pulse Ox 99.1 F 69 18 111/54 93 12/19/18 13:14 12/19/18 13:14 12/19/18 14:21 12/19/18 13:14 12/19/18 13:14 General: A&O x3, NWB laying in bed RLE: Dressing CDI. + F/E MTP. Neurovascularly intact. Laboratory Last Values Hgb 11.5 g/dL (14.0-18.0) L 12/19/18 05:11 Hct 35 % (36-46) L 12/19/18 05:11 Plt Count 223 10^3/uL (150-450) 12/19/18 05:11 MPV 7.6 fL (7.4-10.4) 12/19/18 05:11 Sodium 137 mmol/L (135-145) 12/17/18 06:06 Potassium 4.6 mmol/L (3.5-5.0) 12/17/18 06:06 Chloride 103 mmol/L (101-111) 12/17/18 06:06 Carbon Dioxide 27 mmol/L (22-32) 12/17/18 06:06 Anion Gap 7 mmol/L (2-11) 12/17/18 06:06 BUN 29 mg/dL (6-24) H 12/17/18 06:06 Creatinine 1.10 mg/dL (0.67-1.17) 12/17/18 06:06 Est GFR ( Amer) 82.6 (>60) 12/17/18 06:06 Est GFR (Non-Af Amer) 68.3 (>60) 12/17/18 06:06 BUN/Creatinine Ratio 26.4 (8-20) H 12/17/18 06:06 Glucose 257 mg/dL (70-100) H 12/17/18 06:06 POC Glucose (mg/dL) 107 mg/dL (70-100) H 12/19/18 11:34 Calcium 8.7 mg/dL (8.6-10.3) 12/17/18 06:06 Troponin I 0.01 ng/mL (<0.04) 12/17/18 18:20 ] Assessment: [POD #3 from R patellar tendon repair] Plan: [Continue PT/OT. TTWB RLE with immobilizer on. Continue Aspirin for DVT ppx Awaiting bed at [facility] ]
--- NOTE | 2018-12-19 17:13 | PN ---
Subjective Date of Service: 12/19/18 Interval History: Reports he feels well today. Report pain in right knee is well controlled. Reports occasional pain in right shoulder which is chronic for him due to arthritis. Denies cp, sob, palpitations, nausea, vomiting diarrhea. Objective Active Medications: Acetaminophen (Tylenol Tab*) 975 mg PO Q8H [facility] Last Admin: 12/19/18 11:35 Dose: Not Given Albuterol (Ventolin 2.5 Mg/3 Ml Neb.Kennedi*) 2.5 mg INH Q4H PRN PRN Reason: SOB/WHEEZING Last Admin: 12/18/18 22:20 Dose: 2.5 mg Aspirin (Aspirin Tab*) 325 mg PO 0900,2100 [facility] Last Admin: 12/19/18 08:06 Dose: 325 mg Atorvastatin Calcium (Lipitor*) 80 mg PO BEDTIME [facility] Last Admin: 12/18/18 22:11 Dose: 80 mg Baclofen (Lioresal Tab*) 20 mg PO TID [facility] Last Admin: 12/19/18 14:22 Dose: 20 mg Bisacodyl (Dulcolax Supp*) 10 mg HI DAILY PRN PRN Reason: constipation Calcium Polycarbophil (Fibercon Tab*) 625 mg PO QAM [facility] Last Admin: 12/19/18 08:07 Dose: 625 mg Dextrose (D50w Syringe 50 Ml*) 12.5 gm IV PUSH .FOR FS < 60 - SS PRN PRN Reason: FS < 60 Diazepam (Valium Tab(*)) 5 mg PO Q8H PRN PRN Reason: AGITATION Last Admin: 12/18/18 07:54 Dose: 5 mg Diphenhydramine HCl (Benadryl Iv*) 12.5 mg IV Q6H PRN PRN Reason: PRURITIS Docusate Sodium (Colace Cap*) 100 mg PO BID [facility] Last Admin: 12/19/18 08:06 Dose: 100 mg Gabapentin (Neurontin Cap(*)) 300 mg PO TID [facility] Last Admin: 12/19/18 14:21 Dose: 300 mg Lactated Ringer's (Lactated Ringers 1000 Ml Bag*) 1,000 mls @ 100 mls/hr IV PER RATE [facility] Last Admin: 12/17/18 20:42 Dose: 100 mls/hr Insulin Glargine (Lantus(*)) 85 units SUBCUT BEDTIME [facility] Last Admin: 12/18/18 22:12 Dose: 85 units Insulin Human Lispro (Humalog*) 0 units SUBCUT ACHS [facility]; Protocol Last Admin: 12/19/18 11:35 Dose: Not Given Lactulose (Lactulose*) 30 ml PO Q6H PRN PRN Reason: constipation Levothyroxine Sodium (Synthroid Tab*) 137 mcg PO 0600 [facility] Last Admin: 12/19/18 05:26 Dose: 137 mcg Lisinop[facility] ([facility]in[facility]*) [facility] Last Admin: 12/19/18 08:06 Dose: 10 mg Magnesium Hydroxide (Milk Of Magnesia Liq*) 30 ml PO BID [facility] Last Admin: 12/19/18 08:07 Dose: 30 ml Magnesium Hydroxide (Milk Of Magnesia Liq*) 30 ml PO Q6H PRN PRN Reason: constipation Morphine Sulfate (Morphine Inj (Syringe))*) 2 mg IV Q2H PRN PRN Reason: PAIN Last Admin: 12/19/18 14:10 Dose: 2 mg Ondansetron HCl (Zofran Inj*) 4 mg IV Q6H PRN PRN Reason: nausea Ondansetron HCl (Zofran Tab*) 4 mg PO Q6H PRN PRN Reason: NAUSEA Oxycodone/Acetaminophen (Percocet 5/325 Tab*) 1 tab PO Q4H PRN PRN Reason: PAIN Oxycodone/Acetaminophen (Percocet 5/325 Tab*) 2 tab PO Q4H PRN PRN Reason: PAIN Last Admin: 12/19/18 15:23 Dose: 2 tab Pantoprazole Sodium (Protonix Tab*) 40 mg PO BID [facility] Last Admin: 12/19/18 08:07 Dose: 40 mg Polyethylene Glycol/Electrolytes (Miralax*) 17 gm PO DAILY PRN PRN Reason: Constipation Pramipexole Dihydrochloride (Mirapex Tab*) 0.25 mg PO [facility] Last Admin: 12/19/18 08:06 Dose: 0.25 mg Sertraline HCl (Zoloft*) 200 mg PO [facility] Last Admin: 12/19/18 08:06 Dose: 200 mg Triamterene/HCTZ (Dyazide Cap*) 1 cap PO QAM [facility] Last Admin: 12/19/18 08:06 Dose: 1 cap Vital Signs - 8 hr 12/19/18 12/19/18 12/19/18 09:57 11:28 13:14 Temperature 99.1 F Pulse Rate 69 Respiratory 18 18 20 Rate Blood Pressure 111/54 (mmHg) O2 Sat by Pulse 93 Oximetry 12/19/18 12/19/18 12/19/18 13:18 14:10 14:21 Temperature Pulse Rate Respiratory 18 20 18 Rate Blood Pressure (mmHg) O2 Sat by Pulse Oximetry 12/19/18 12/19/18 12/19/18 15:14 15:23 16:32 Temperature Pulse Rate Respiratory 18 18 18 Rate Blood Pressure (mmHg) O2 Sat by Pulse Oximetry Oxygen Devices in Use Now: None, CPAP Appearance: Comfortable, NAD Eyes: No Scleral Icterus Ears/Nose/Mouth/Throat: Clear Oropharnyx, Mucous Membranes Moist Neck: NL Appearance and Movements; NL JVP Respiratory: Symmetrical Chest Expansion and Respiratory Effort, Clear to Auscultation Cardiovascular: NL Sounds; No Murmurs; No JVD, No Edema Abdominal: NL Sounds; No Tenderness; No Distention Lymphatic: No Cervical Adenopathy Extremities: No Clubbing, Cyanosis Skin: No Rash or Ulcers Neurological: Alert and Oriented x 3 Nutrition: Taking PO's Result Diagrams: 12/19/18 05:11 12/17/18 06:06 Additional Lab and Data: Laboratory Results - last 24 hr 12/18/18 12/18/18 12/19/18 17:12 21:57 05:11 Hgb 11.5 L Hct 35 L Plt Count 223 MPV 7.6 POC Glucose (mg/dL) 180 H 158 H 12/19/18 12/19/18 07:57 11:34 Hgb Hct Plt Count MPV POC Glucose (mg/dL) 133 H 107 H Microbiology and Other Data: Microbiology 12/17/18 02:15 Urine Culture - Final Urine No Growth (<1,000 CFU/mL) Assess/Plan/Problems-Billing Assessment: Mr. Houston is a 58 yo male with a PMH of cerebral palsy, left hemiplegia, hypertension, depression, CHUY on CPAP who was admitted on for a right patellar tendon repair secondary to fall from wheelchair. - Patient Problems (1) Patellar tendon rupture Comment: - POD # 3 s/p repair - Management per ortho - TTWB R LE for transfers, patient is wheelchair bound, immobilizer on at all times - Continue pain meds with bowel regimen (2) Cerebral palsy Comment: - Continue baclofen, diazepam (3) Depression Comment: - Continue sertraline (4) Diabetes Comment: - BGs 140-220s - Continue home dose lantus, continue SSI - Hold tradjenta and metformin until discharge (5) Hyperlipidemia Comment: - Continue atorvastatin (6) Hypertension Comment: - SBP 120-140s. - Resumed triamterine/hctz and lisinopril 12/19 (7) Hypothyroidism Comment: - Continue levothyroxine (8) CHUY (obstructive sleep apnea) Comment: - Continue cpap (9) SOB (shortness of breath) Comment: - Resolved - Episode of SOB with CP evening of 12/17 - Trop 0.01, no evidence of ischemia on EKG (10) DVT prophylaxis Comment: - Aspirin per ortho. (11) Full code status Comment: Status and Disposition: Inpatient with disposition per ortho. Anticipate need for short term rehab. Attending: Mark Payton
[2018-12-19] MEDS: Atorvastatin* 80 MG TAB PO SCH (21:35)
[2018-12-19] MEDS: Insulin GLARGINE(*) 1 UNITS UNIT SUBCUT SCH (21:38)
[2018-12-20] MEDS: Acetaminophen TAB* 325 MG PO SCH ×3 (05:58→21:27)
[2018-12-20] MEDS: Levothyroxine TAB* 137 MCG TAB PO SCH (05:59)
[2018-12-20 06:20] LABS: Hematocrit 33 % (36-46); Hemoglobin 10.9 g/dL (14.0-18.0); Mean Platelet Volume 7.9 fL (7.4-10.4); Platelet Count 256 10^3/uL (150-450)
[2018-12-20 06:37] LABS: BUN/Creatinine Ratio 22.2 (8-20); Calcium 9.3 mg/dL (8.6-10.3); EGFR Non-African American 42.2 (>60); Potassium 4.5 mmol/L (3.5-5.0)
[2018-12-20] MEDS ORDERED: NS 0.9% 1000 ML** 1,000 ML IV SCH (07:15)
[2018-12-20] MEDS: Insulin LISPRO* 1 UNITS UNIT SUBCUT SCH ×4 (07:43→21:28)
[2018-12-20] MEDS: Baclofen TAB* 20 MG PO SCH ×3 (08:07→21:29)
[2018-12-20] MEDS: Aspirin TAB* 325 MG PO SCH ×2 (08:07→21:29)
[2018-12-20] MEDS: Calcium Polycarbophil TAB* 625 MG PO SCH (08:08)
[2018-12-20] MEDS: Docusate CAP* 100 MG PO SCH ×2 (08:08→21:28)
[2018-12-20] MEDS: Gabapentin CAP(*) 300 MG PO SCH ×3 (08:08→21:29)
[2018-12-20] MEDS: Pramipexole TAB* 0.125 MG PO SCH (08:09)
[2018-12-20] MEDS: Lisinopril TAB* 10 MG PO SCH (08:09)
[2018-12-20] MEDS: Pantoprazole TAB * 40 MG TAB PO SCH ×2 (08:09→21:28)
[2018-12-20] MEDS: Magnesium Hydroxide LIQ* 30 ML UDC PO SCH ×2 (08:09→21:28)
[2018-12-20] MEDS: Triamterene/HCTZ 37.5-25 MG* CAP PO SCH (08:10)
[2018-12-20] MEDS: oxyCODONE/Acetamin 5/325 MG* TAB PO PRN ×2 (08:11→19:40)
[2018-12-20] MEDS: Sertraline* 100 MG TAB PO SCH (08:18)
--- NOTE | 2018-12-20 13:38 | PN ---
Progress Note - Progress Note Date of Service: 12/20/18 SOAP: Subjective: []Pt seen at bedside, he feels well, right knee pain is well controlled. Denies CP,SOB, dizziness, nausea. Objective: []General: Appears well, NAD RLE: Dressing changed, incision CDI, thigh soft, DF/PF intact, DP2+, sensation intact to light touch distally Calves supple and nontender without erythema, edema or palpable cords Assessment: [] sp repair of right patellar tendon rupture Plan: []TTWB RLE transfers only immobilizer at all times PT/OT Aspirin 325 mg po BID for DVT prophylaxis Fu Dr Whalen 10-14 days post op Vital Signs Temp 98.1 F 12/20/18 07:19 Pulse 59 12/20/18 07:19 Resp 18 12/20/18 08:11 BP 121/56 12/20/18 07:19 Pulse Ox 96 12/20/18 08:00 Intake & Output 12/19/18 12/20/18 12/20/18 18:59 06:59 18:59 Intake Total 210 1480 Output Total 117 971 9835 Balance -540 680 -1000 Intake: Oral 210 1480 Output: Briggs 331 193 4147 Other: # Bowel Movements 1 Estimated Stool Amount Small Laboratory Last Values Hgb 10.9 g/dL (14.0-18.0) L 12/20/18 06:01 Hct 33 % (36-46) L 12/20/18 06:01 Plt Count 256 10^3/uL (150-450) 12/20/18 06:01 MPV 7.9 fL (7.4-10.4) 12/20/18 06:01 Sodium 133 mmol/L (135-145) L 12/20/18 06:01 Potassium 4.5 mmol/L (3.5-5.0) 12/20/18 06:01 Chloride 96 mmol/L (101-111) L 12/20/18 06:01 Carbon Dioxide 31 mmol/L (22-32) 12/20/18 06:01 Anion Gap 6 mmol/L (2-11) 12/20/18 06:01 BUN 37 mg/dL (6-24) H 12/20/18 06:01 Creatinine 1.67 mg/dL (0.67-1.17) H 12/20/18 06:01 Est GFR ( Amer) 51.0 (>60) 12/20/18 06:01 Est GFR (Non-Af Amer) 42.2 (>60) 12/20/18 06:01 BUN/Creatinine Ratio 22.2 (8-20) H 12/20/18 06:01 Glucose 79 mg/dL (70-100) 12/20/18 06:01 POC Glucose (mg/dL) 111 mg/dL (70-100) H 12/19/18 20:26 Calcium 9.3 mg/dL (8.6-10.3) 12/20/18 06:01 Troponin I 0.01 ng/mL (<0.04) 12/17/18 18:20
--- NOTE | 2018-12-20 17:04 | PN ---
Subjective Date of Service: 12/20/18 Interval History: Resting in bed on assessment. Reports pain in right knee is well controlled on current regime. Denies repeat episodes of shortness of breath. Denies cp, palpitations, nausea, vomiting, fever, chills. Reports BM yesterday. Objective Active Medications: Acetaminophen (Tylenol Tab*) 975 mg PO Q8H ON LICENSE OF [facility] Last Admin: 12/20/18 14:37 Dose: 975 mg Albuterol (Ventolin 2.5 Mg/3 Ml Neb.Kennedi*) 2.5 mg INH Q4H PRN PRN Reason: SOB/WHEEZING Last Admin: 12/18/18 22:20 Dose: 2.5 mg Aspirin (Aspirin Tab*) 325 mg PO 0900,2100 ON LICENSE OF [facility] Last Admin: 12/20/18 08:07 Dose: 325 mg Atorvastatin Calcium (Lipitor*) 80 mg PO BEDTIME ON LICENSE OF [facility] Last Admin: 12/19/18 21:35 Dose: 80 mg Baclofen (Lioresal Tab*) 20 mg PO TID ON LICENSE OF [facility] Last Admin: 12/20/18 14:38 Dose: 20 mg Bisacodyl (Dulcolax Supp*) 10 mg [place] DAILY PRN PRN Reason: constipation Calcium Polycarbophil (Fibercon Tab*) 625 mg PO QAM ON LICENSE OF [facility] Last Admin: 12/20/18 08:08 Dose: 625 mg Dextrose (D50w Syringe 50 Ml*) 12.5 gm IV PUSH .FOR FS < 60 - SS PRN PRN Reason: FS < 60 Diazepam (Valium Tab(*)) 5 mg PO Q8H PRN PRN Reason: AGITATION Last Admin: 12/18/18 07:54 Dose: 5 mg Diphenhydramine HCl (Benadryl Iv*) 12.5 mg IV Q6H PRN PRN Reason: PRURITIS Docusate Sodium (Colace Cap*) 100 mg PO BID ON LICENSE OF [facility] Last Admin: 12/20/18 08:08 Dose: 100 mg Gabapentin (Neurontin Cap(*)) 300 mg PO TID ON LICENSE OF [facility] Last Admin: 12/20/18 14:38 Dose: 300 mg Sodium Chloride (Ns 0.9% 1000 Ml) 1,000 mls @ 100 mls/hr IV PER RATE ON LICENSE OF [facility] Last Admin: 12/20/18 08:18 Dose: 100 mls/hr Insulin Glargine (Lantus(*)) 85 units SUBCUT BEDTIME ON LICENSE OF [facility] Last Admin: 12/19/18 21:38 Dose: 85 units Insulin Human Lispro (Humalog*) 0 units SUBCUT ACHS ON LICENSE OF [facility]; Protocol Last Admin: 12/20/18 13:55 Dose: Not Given Lactulose (Lactulose*) 30 ml PO Q6H PRN PRN Reason: constipation Levothyroxine Sodium (Synthroid Tab*) 137 mcg PO 0600 ON LICENSE OF [facility] Last Admin: 12/20/18 05:59 Dose: 137 mcg Lisinopril (Prinivil Tab*) 10 mg PO QAM ON LICENSE OF [facility] Last Admin: 12/20/18 08:09 Dose: 10 mg Magnesium Hydroxide (Milk Of Magnesia Liq*) 30 ml PO BID ON LICENSE OF [facility] Last Admin: 12/20/18 08:09 Dose: 30 ml Magnesium Hydroxide (Milk Of Magnesia Liq*) 30 ml PO Q6H PRN PRN Reason: constipation Morphine Sulfate (Morphine Inj (Syringe))*) 2 mg IV Q2H PRN PRN Reason: PAIN Last Admin: 12/19/18 14:10 Dose: 2 mg Ondansetron HCl (Zofran Inj*) 4 mg IV Q6H PRN PRN Reason: nausea Ondansetron HCl (Zofran Tab*) 4 mg PO Q6H PRN PRN Reason: NAUSEA Oxycodone/Acetaminophen (Percocet 5/325 Tab*) 1 tab PO Q4H PRN PRN Reason: PAIN Last Admin: 12/20/18 08:11 Dose: 1 tab Oxycodone/Acetaminophen (Percocet 5/325 Tab*) 2 tab PO Q4H PRN PRN Reason: PAIN Last Admin: 12/19/18 21:35 Dose: 2 tab Pantoprazole Sodium (Protonix Tab*) 40 mg PO BID ON LICENSE OF [facility] Last Admin: 12/20/18 08:09 Dose: 40 mg Polyethylene Glycol/Electrolytes (Miralax*) 17 gm PO DAILY PRN PRN Reason: Constipation Last Admin: 12/19/18 21:34 Dose: 17 gm Pramipexole Dihydrochloride (Mirapex Tab*) [facility] [place] [facility] [place] Admin: 12/20/18 08:09 Dose: 0.25 mg Sertraline HCl (Zoloft*) [facility] [place] Admin: 12/20/18 08:18 Dose: 200 mg Triamterene/HCTZ (Dyazide Cap*) 1 cap PO QAM ON LICENSE OF [facility] Last Admin: 12/20/18 08:10 Dose: 1 cap Vital Signs - 8 hr 12/20/18 14:38 Respiratory 18 Rate Oxygen Devices in Use Now: Nasal Cannula, CPAP Appearance: Comfortable, NAD Eyes: No Scleral Icterus Ears/Nose/Mouth/Throat: Clear Oropharnyx, Mucous Membranes Moist Neck: NL Appearance and Movements; NL JVP Respiratory: Symmetrical Chest Expansion and Respiratory Effort, Clear to Auscultation Cardiovascular: NL Sounds; No Murmurs; No JVD, RRR, No Edema Abdominal: NL Sounds; No Tenderness; No Distention Lymphatic: No Cervical Adenopathy Extremities: No Edema Skin: No Rash or Ulcers Neurological: Alert and Oriented x 3 Nutrition: Taking PO's Result Diagrams: 12/20/18 06:01 12/20/18 06:01 Additional Lab and Data: Laboratory Results - last 24 hr 12/19/18 12/19/18 12/20/18 17:38 20:26 06:01 Hgb 10.9 L Hct 33 L Plt Count 256 MPV 7.9 Sodium Potassium Chloride Carbon Dioxide Anion Gap BUN Creatinine Est GFR ( Amer) Est GFR (Non-Af Amer) BUN/Creatinine Ratio Glucose POC Glucose (mg/dL) 88 111 H Calcium 12/20/18 12/20/18 06:01 12:22 Hgb Hct Plt Count MPV Sodium 133 L Potassium 4.5 Chloride 96 L Carbon Dioxide 31 Anion Gap 6 BUN 37 H Creatinine 1.67 H Est GFR ( Amer) 51.0 Est GFR (Non-Af Amer) 42.2 BUN/Creatinine Ratio 22.2 H Glucose 79 POC Glucose (mg/dL) 129 H Calcium 9.3 Microbiology and Other Data: Microbiology 12/17/18 02:15 Urine Urine Culture - Final No Growth (<1,000 CFU/mL) Assess/Plan/Problems-Billing Assessment: Mr. Houston is a 58 yo male with a PMH of cerebral palsy, left hemiplegia, hypertension, depression, CHUY on CPAP who was admitted on for a right patellar tendon repair secondary to fall from wheelchair. - Patient Problems (1) Patellar tendon rupture Comment: - POD # 4 s/p repair - Management per ortho - TTWB R LE for transfers, patient is wheelchair bound, immobilizer on at all times - Continue pain meds with bowel regimen. Last BM today - ASA for DVT proph per ortho - Briggs d/c'd today 12/20. Monitor for retention. (2) Cerebral palsy Comment: - Continue baclofen, diazepam (3) Depression Comment: - Continue sertraline (4) Diabetes Comment: - BGs 140-220s - Continue home dose lantus, continue SSI - Hold tradjenta and metformin until discharge (5) Hyperlipidemia Comment: - Continue atorvastatin (6) Hypertension Comment: - SBP 120-140s. - Resumed triamterine/hctz and lisinopril 12/19 (7) Hypothyroidism Comment: - Continue levothyroxine (8) CHUY (obstructive sleep apnea) Comment: - Continue cpap (9) SOB (shortness of breath) Comment: - Resolved - Episode of SOB with CP evening of 12/17 - Trop 0.01, no evidence of ischemia on EKG (10) DVT prophylaxis Comment: - Aspirin per ortho. (11) Full code status Comment: Status and Disposition: Inpatient with disposition per ortho. Anticipate need for short term rehab. Attending: Mark Payton
[2018-12-20] MEDS: Insulin GLARGINE(*) 1 UNITS UNIT SUBCUT SCH (21:28)
[2018-12-20] MEDS: Atorvastatin* 80 MG TAB PO SCH (21:29)
[2018-12-21] MEDS: Acetaminophen TAB* 325 MG PO SCH ×3 (04:33→22:10)
[2018-12-21] MEDS: oxyCODONE/Acetamin 5/325 MG* TAB PO PRN ×2 (05:51→21:23)
[2018-12-21] MEDS: Levothyroxine TAB* 137 MCG TAB PO SCH (05:51)
[2018-12-21 07:42] LABS: Hematocrit 34 % (36-46); Hemoglobin 11.2 g/dL (14.0-18.0); Mean Platelet Volume 8.1 fL (7.4-10.4); Platelet Count 277 10^3/uL (150-450)
[2018-12-21 08:03] LABS: BUN/Creatinine Ratio 26.1 (8-20); Calcium 9.2 mg/dL (8.6-10.3); EGFR African American 61.5 (>60); EGFR Non-African American 50.9 (>60); Potassium 4.5 mmol/L (3.5-5.0)
[2018-12-21] MEDS: Insulin LISPRO* 1 UNITS UNIT SUBCUT SCH ×4 (09:16→21:26)
[2018-12-21] MEDS: Aspirin TAB* 325 MG PO SCH ×2 (09:17→21:24)
[2018-12-21] MEDS: Gabapentin CAP(*) 300 MG PO SCH ×3 (09:17→21:23)
[2018-12-21] MEDS: Sertraline* 100 MG TAB PO SCH (09:17)
[2018-12-21] MEDS: Docusate CAP* 100 MG PO SCH ×2 (09:18→22:10)
[2018-12-21] MEDS: Baclofen TAB* 20 MG PO SCH ×3 (09:18→21:22)
[2018-12-21] MEDS: Pantoprazole TAB * 40 MG TAB PO SCH ×2 (09:18→21:23)
[2018-12-21] MEDS: Triamterene/HCTZ 37.5-25 MG* CAP PO SCH (09:18)
[2018-12-21] MEDS: Magnesium Hydroxide LIQ* 30 ML UDC PO SCH ×2 (09:19→22:10)
[2018-12-21] MEDS: Lisinopril TAB* 10 MG PO SCH (09:23)
[2018-12-21] MEDS: Pramipexole TAB* 0.125 MG PO SCH (09:23)
[2018-12-21] MEDS: Calcium Polycarbophil TAB* 625 MG PO SCH (09:23)
--- NOTE | 2018-12-21 12:06 | PN ---
Progress Note - Progress Note Date of Service: 12/21/18 SOAP: Subjective: []Pt seen and examined at bedside. The right knee is not painful. Denies CP, SOB , dizziness, nausea. He does have a cough which he feels is improving. Objective: [] General: Appears well, NAD RLE: Immobilizer in place, dressing CDI, thigh soft, DF/PF intact, DP2+, sensation intact to light touch distally Calves supple and nontender without erythema, edema or palpable cords Assessment: [] sp repair of right patellar tendon rupture Plan: []TTWB RLE transfers only immobilizer at all times PT/OT Aspirin 325 mg po BID for DVT prophylaxis Fu Dr Whalen 10-14 days post op awaiting insurance approval for rehab Vital Signs Temp 98.7 F 12/21/18 11:38 Pulse 62 12/21/18 11:38 Resp 18 12/21/18 11:38 BP 107/59 12/21/18 11:38 Pulse Ox 92 12/21/18 11:38 Intake & Output 12/20/18 12/21/18 12/21/18 18:59 06:59 18:59 Intake Total 700 Output Total 1700 650 300 Balance -1700 50 -300 Intake: Oral 700 Output: Urine 300 650 300 Briggs 1350 Estimated Blood Loss 50 Other: Estimated Void Medium Date of Last Bowel 12/20/2018 Movement # Bowel Movements 1 1 1 Estimated Stool Amount Medium Small Small # Voids 1 Laboratory Last Values Hgb 11.2 g/dL (14.0-18.0) L 12/21/18 06:59 Hct 34 % (36-46) L 12/21/18 06:59 Plt Count 277 10^3/uL (150-450) 12/21/18 06:59 MPV 8.1 fL (7.4-10.4) 12/21/18 06:59 Sodium 135 mmol/L (135-145) 12/21/18 06:59 Potassium 4.5 mmol/L (3.5-5.0) 12/21/18 06:59 Chloride 99 mmol/L (101-111) L 12/21/18 06:59 Carbon Dioxide 30 mmol/L (22-32) 12/21/18 06:59 Anion Gap 6 mmol/L (2-11) 04/24/19 06:59 BUN 37 mg/dL (6-24) H 12/21/18 06:59 Creatinine 1.42 mg/dL (0.67-1.17) H 12/21/18 06:59 Est GFR ( Amer) 61.5 (>60) 12/21/18 06:59 Est GFR (Non-Af Amer) 50.9 (>60) 12/21/18 06:59 BUN/Creatinine Ratio 26.1 (8-20) H 12/21/18 06:59 Glucose 139 mg/dL (70-100) H 12/21/18 06:59 POC Glucose (mg/dL) 167 mg/dL (70-100) H 12/21/18 11:30 Calcium 9.2 mg/dL (8.6-10.3) 12/21/18 06:59 Troponin I 0.01 ng/mL (<0.04) 12/17/18 18:20
--- NOTE | 2018-12-21 16:46 | PN ---
Subjective Date of Service: 12/21/18 Interval History: Patient reports he is doing well today. Reports pain is well controlled. Denies cp, sob, palpitations, nausea, vomiting, fever, chills. Briggs removed yesterday and patient is voiding without difficulty. Objective Active Medications: Acetaminophen (Tylenol Tab*) 975 mg PO Q8H [facility] Last Admin: 12/21/18 13:03 Dose: 975 mg Albuterol (Ventolin 2.5 Mg/3 Ml Neb.Kennedi*) 2.5 mg INH Q4H PRN PRN Reason: SOB/WHEEZING Last Admin: 12/18/18 22:20 Dose: 2.5 mg Aspirin (Aspirin Tab*) 325 mg PO 0900,2100 [facility] Last Admin: 12/21/18 09:17 Dose: 325 mg Atorvastatin Calcium (Lipitor*) 80 mg PO BEDTIME [facility] Last Admin: 12/20/18 21:29 Dose: 80 mg Baclofen (Lioresal Tab*) 20 mg PO TID [facility] Last Admin: 12/21/18 13:04 Dose: 20 mg Bisacodyl (Dulcolax Supp*) 10 mg [place] DAILY PRN PRN Reason: constipation Calcium Polycarbophil (Fibercon Tab*) 625 mg PO QAM [facility] Last Admin: 12/21/18 09:23 Dose: 625 mg Dextrose (D50w Syringe 50 Ml*) 12.5 gm IV PUSH .FOR FS < 60 - SS PRN PRN Reason: FS < 60 Diazepam (Valium Tab(*)) 5 mg PO Q8H PRN PRN Reason: AGITATION Last Admin: 12/18/18 07:54 Dose: 5 mg Diphenhydramine HCl (Benadryl Iv*) 12.5 mg IV Q6H PRN PRN Reason: PRURITIS Docusate Sodium (Colace Cap*) 100 mg PO BID [facility] Last Admin: 12/21/18 09:18 Dose: Not Given Gabapentin (Neurontin Cap(*)) 300 mg PO TID [facility] Last Admin: 12/21/18 13:04 Dose: 300 mg Insulin Glargine (Lantus(*)) 85 units SUBCUT BEDTIME [facility] Last Admin: 12/20/18 21:28 Dose: 85 units Insulin Human Lispro (Humalog*) 0 units SUBCUT [facility]; Protocol Last Admin: 12/21/18 13:03 Dose: 3 units Lactulose (Lactulose*) 30 ml PO Q6H PRN PRN Reason: constipation Levothyroxine Sodium (Synthroid Tab*) 137 mcg PO 0600 [facility] Last Admin: 12/21/18 05:51 Dose: 137 mcg Lisinopril (Prinivil Tab*) 10 mg PO QAM [facility] Last Admin: 12/21/18 09:23 Dose: 10 mg Magnesium Hydroxide (Milk Of Magnesia Liq*) 30 ml PO BID [facility] Last Admin: 12/21/18 09:19 Dose: Not Given Magnesium Hydroxide (Milk Of Magnesia Liq*) 30 ml PO Q6H PRN PRN Reason: constipation Morphine Sulfate (Morphine Inj (Syringe))*) 2 mg IV Q2H PRN PRN Reason: PAIN Last Admin: 12/19/18 14:10 Dose: 2 mg Ondansetron HCl (Zofran Inj*) 4 mg IV Q6H PRN PRN Reason: nausea Ondansetron HCl (Zofran Tab*) 4 mg PO Q6H PRN PRN Reason: NAUSEA Oxycodone/Acetaminophen (Percocet 5/325 Tab*) 1 tab PO Q4H PRN PRN Reason: PAIN Last Admin: 12/20/18 19:40 Dose: 1 tab Oxycodone/Acetaminophen (Percocet 5/325 Tab*) 2 tab PO Q4H PRN PRN Reason: PAIN Last Admin: 12/21/18 05:51 Dose: 2 tab Pantoprazole Sodium (Protonix Tab*) 40 mg PO BID [facility] Last Admin: 12/21/18 09:18 Dose: 40 mg Polyethylene Glycol/Electrolytes (Miralax*) 17 gm PO DAILY PRN PRN Reason: Constipation Last Admin: 12/19/18 21:34 Dose: 17 gm Pramipexole Dihydrochloride (Mirapex Tab*) [facility] [place] [place] Last Admin: 12/21/18 09:23 Dose: 0.25 mg Sertraline HCl (Zoloft*) [facility] [place] Last Admin: 12/21/18 09:17 Dose: 200 mg Triamterene/HCTZ (Dyazide Cap*) [facility] [place] Last Admin: 12/21/18 09:18 Dose: 1 cap Vital Signs - 8 hr 12/21/18 12/21/18 12/21/18 09:17 11:38 12:53 Temperature 98.7 F Pulse Rate 62 Respiratory 18 18 18 Rate Blood Pressure 107/59 (mmHg) O2 Sat by Pulse 92 Oximetry 12/21/18 12/21/18 12/21/18 13:04 14:09 15:32 Temperature 97.3 F Pulse Rate 57 Respiratory 18 16 Rate Blood Pressure 112/57 (mmHg) O2 Sat by Pulse 94 77 Oximetry 12/21/18 12/21/18 15:45 16:00 Temperature Pulse Rate Respiratory 18 Rate Blood Pressure (mmHg) O2 Sat by Pulse 77 Oximetry Oxygen Devices in Use Now: Nasal Cannula Appearance: Comfortable, NAD Eyes: No Scleral Icterus Ears/Nose/Mouth/Throat: Clear Oropharnyx, Mucous Membranes Moist Neck: NL Appearance and Movements; NL JVP Respiratory: Symmetrical Chest Expansion and Respiratory Effort, Clear to Auscultation, - - Occasional moist cough, but lungs clear. Cardiovascular: NL Sounds; No Murmurs; No JVD, RRR, No Edema Abdominal: NL Sounds; No Tenderness; No Distention Lymphatic: No Cervical Adenopathy Extremities: No Clubbing, Cyanosis Skin: No Rash or Ulcers Neurological: Alert and Oriented x 3 Nutrition: Taking PO's Result Diagrams: 12/21/18 06:59 12/21/18 06:59 Additional Lab and Data: Laboratory Results - last 24 hr 12/20/18 12/20/18 12/21/18 17:13 21:14 06:59 Hgb 11.2 L Hct 34 L Plt Count 277 MPV 8.1 Sodium Potassium Chloride Carbon Dioxide Anion Gap BUN Creatinine Est GFR ( Amer) Est GFR (Non-Af Amer) BUN/Creatinine Ratio Glucose POC Glucose (mg/dL) 125 H 178 H Calcium 12/21/18 12/21/18 06:59 11:30 Hgb Hct Plt Count MPV Sodium 135 Potassium 4.5 Chloride 99 L Carbon Dioxide 30 Anion Gap 6 BUN 37 H Creatinine 1.42 H Est GFR ( Amer) 61.5 Est GFR (Non-Af Amer) 50.9 BUN/Creatinine Ratio 26.1 H Glucose 139 H POC Glucose (mg/dL) 167 H Calcium 9.2 Microbiology and Other Data: Microbiology 12/17/18 02:15 Urine Urine Culture - Final No Growth (<1,000 CFU/mL) Assess/Plan/Problems-Billing Assessment: Mr. Houston is a 58 yo male with a PMH of cerebral palsy, left hemiplegia, hypertension, depression, CHUY on CPAP who was admitted on for a right patellar tendon repair secondary to fall from wheelchair. - Patient Problems (1) Patellar tendon rupture Comment: - POD # 5 s/p repair - Management per ortho - TTWB R LE for transfers, patient is wheelchair bound, immobilizer on at all times - Continue pain meds with bowel regimen. - ASA for DVT proph per ortho - Briggs d/c'd today 12/20 and patient voiding without difficulty. (2) AUDIE (acute kidney injury) Comment: - Increase in creatinine noted from 1.10 on 12/17 to 1.67 on 12.20 and 1.42 today. - Suspected secondary to restart of patient's home lisinopril and dyazide on - Educated on increase PO fluid intake - Recommend rechecking in one week as outpatient (3) Cerebral palsy Comment: - Continue baclofen, diazepam (4) Depression Comment: - Continue sertraline (5) Diabetes Comment: - BGs 140-220s - Continue home dose lantus, continue SSI - Hold tradjenta and metformin until discharge (6) Hyperlipidemia Comment: - Continue atorvastatin (7) Hypertension Comment: - SBP 120-140s. - Resumed triamterine/hctz and lisinopril 12/19 (8) Hypothyroidism Comment: - Continue levothyroxine (9) CHUY (obstructive sleep apnea) Comment: - Continue cpap (10) SOB (shortness of breath) Comment: - Resolved - Episode of SOB with CP evening of 12/17 - Trop 0.01, no evidence of ischemia on EKG (11) DVT prophylaxis Comment: - Aspirin per ortho. (12) Full code status Comment: Status and Disposition: Inpatient with disposition per ortho. Anticipate need for short term rehab. Attending: Mark Payton
[2018-12-21] MEDS: Atorvastatin* 80 MG TAB PO SCH (21:23)
[2018-12-21] MEDS: Insulin GLARGINE(*) 1 UNITS UNIT SUBCUT SCH (21:25)
[2018-12-21] MEDS: Diazepam TAB(*) 5 MG PO PRN (22:24)
[2018-12-22] MEDS: Levothyroxine TAB* 137 MCG TAB PO SCH (06:15)
[2018-12-22] MEDS: Acetaminophen TAB* 325 MG PO SCH ×3 (06:18→21:19)
[2018-12-22] MEDS: Albuterol 2.5 MG/3 ML NEB.SOL* (0.083%) INH PRN (08:33)
[2018-12-22] MEDS: Insulin LISPRO* 1 UNITS UNIT SUBCUT SCH ×4 (08:55→21:22)
[2018-12-22] MEDS: Gabapentin CAP(*) 300 MG PO SCH ×3 (10:28→21:21)
[2018-12-22] MEDS: Calcium Polycarbophil TAB* 625 MG PO SCH (10:28)
[2018-12-22] MEDS: Lisinopril TAB* 10 MG PO SCH (10:29)
[2018-12-22] MEDS: Docusate CAP* 100 MG PO SCH ×2 (10:29→21:20)
[2018-12-22] MEDS: Triamterene/HCTZ 37.5-25 MG* CAP PO SCH (10:29)
[2018-12-22] MEDS: Magnesium Hydroxide LIQ* 30 ML UDC PO SCH ×2 (10:30→21:21)
[2018-12-22] MEDS: Pantoprazole TAB * 40 MG TAB PO SCH ×2 (10:30→21:20)
[2018-12-22] MEDS: Pramipexole TAB* 0.125 MG PO SCH (10:30)
[2018-12-22] MEDS: Sertraline* 100 MG TAB PO SCH (10:30)
[2018-12-22] MEDS: Baclofen TAB* 20 MG PO SCH ×3 (10:31→21:20)
[2018-12-22] MEDS: Aspirin TAB* 325 MG PO SCH ×2 (10:31→21:20)
--- NOTE | 2018-12-22 15:42 | PN ---
Progress Note - Progress Note Date of Service: 12/22/18 SOAP: Subjective: []Pt seen at bedside. He feels well, no knee pain. Denies CP, SOB, dizziness, nausea. + Cough Objective: [] General: Appears well, NAD RLE: Immobilizer in place, dressing changed, incision CDI without erythema or discharge , thigh soft, DF/PF intact, DP2+, sensation intact to light touch distally Calves supple and nontender without erythema, edema or palpable cords Assessment: [] s/p repair of right patellar tendon rupture Plan: []TTWB RLE transfers only immobilizer at all times PT/OT Aspirin 325 mg po BID for DVT prophylaxis Fu Dr Whalen 10-14 days post op awaiting insurance approval for rehab, has a bed at [facility] Vital Signs Temp 97.8 F 12/22/18 04:37 Pulse 67 12/22/18 08:00 Resp 18 12/22/18 13:31 BP 106/55 12/22/18 04:37 Pulse Ox 94 12/22/18 08:00 Intake & Output 12/21/18 12/22/18 12/22/18 18:59 06:59 18:59 Intake Total 360 880 720 Output Total 700 1450 780 Balance -340 -570 -60 Intake: Oral 360 880 720 NG Tube Irrigate Amount 0 Output: Urine 700 1450 780 Other: # Bowel Movements 1 Estimated Stool Amount Small Laboratory Last Values Hgb 11.2 g/dL (14.0-18.0) L 12/21/18 06:59 Hct 34 % (36-46) L 12/21/18 06:59 Plt Count 277 10^3/uL (150-450) 12/21/18 06:59 MPV 8.1 fL (7.4-10.4) 12/21/18 06:59 Sodium 135 mmol/L (135-145) 12/21/18 06:59 Potassium 4.5 mmol/L (3.5-5.0) 12/21/18 06:59 Chloride 99 mmol/L (101-111) L 12/21/18 06:59 Carbon Dioxide 30 mmol/L (22-32) 12/21/18 06:59 Anion Gap 6 mmol/L (2-11) 12/21/18 06:59 BUN 37 mg/dL (6-24) H 12/21/18 06:59 Creatinine 1.42 mg/dL (0.67-1.17) H 12/21/18 06:59 Est GFR ( Amer) 61.5 (>60) 12/21/18 06:59 Est GFR (Non-Af Amer) 50.9 (>60) 12/21/18 06:59 BUN/Creatinine Ratio 26.1 (8-20) H 12/21/18 06:59 Glucose 139 mg/dL (70-100) H 12/21/18 06:59 POC Glucose (mg/dL) 289 mg/dL (70-100) H 12/22/18 12:02 Glucose Meter Confirm 58 mg/dL (70-100) L 12/22/18 07:51 Calcium 9.2 mg/dL (8.6-10.3) 12/21/18 06:59 Troponin I 0.01 ng/mL (<0.04) 12/17/18 18:20
--- NOTE | 2018-12-22 16:33 | PN ---
Subjective Date of Service: 12/22/18 Interval History: S/P Right Patellar Tendon Repair. Doing well. Awaiting insurance auth for rehab. Report pain is well controlled. Reports occasional productive cough. Denies sob, numbness/tingling, weakness, cp, palpitations, nause, vomiting. Voiding without difficulty. Objective Active Medications: Acetaminophen (Tylenol Tab*) 975 mg PO Q8H [facility] Last Admin: 12/22/18 13:31 Dose: 975 mg Albuterol (Ventolin 2.5 Mg/3 Ml Neb.Kennedi*) 2.5 mg INH Q4H PRN PRN Reason: SOB/WHEEZING Last Admin: 12/22/18 08:33 Dose: 2.5 mg Aspirin (Aspirin Tab*) 325 mg PO 0900,2100 [facility] Last Admin: 12/22/18 10:31 Dose: 325 mg Atorvastatin Calcium (Lipitor*) 80 mg PO BEDTIME [facility] Last Admin: 12/21/18 21:23 Dose: 80 mg Baclofen (Lioresal Tab*) 20 mg PO TID [facility] Last Admin: 12/22/18 13:32 Dose: 20 mg Bisacodyl (Dulcolax Supp*) [address] DAILY PRN PRN Reason: constipation Calcium Polycarbophil (Fibercon Tab*) 625 mg PO QAM [facility] Last Admin: 12/22/18 10:28 Dose: 625 mg Dextrose (D50w Syringe 50 Ml*) 12.5 gm IV PUSH .FOR FS < 60 - SS PRN PRN Reason: FS < 60 Diazepam (Valium Tab(*)) 5 mg PO Q8H PRN PRN Reason: AGITATION Last Admin: 12/21/18 22:24 Dose: 5 mg Diphenhydramine HCl (Benadryl Iv*) 12.5 mg IV Q6H PRN PRN Reason: PRURITIS Docusate Sodium (Colace Cap*) 100 mg PO BID [facility] Last Admin: 12/22/18 10:29 Dose: Not Given Gabapentin (Neurontin Cap(*)) 300 mg PO TID [facility] Last Admin: 12/22/18 13:31 Dose: 300 mg Insulin Glargine (Lantus(*)) 70 units SUBCUT BEDTIME [facility] Insulin Human Lispro (Humalog*) 0 units SUBCUT [facility]; Protocol Last Admin: 12/22/18 13:29 Dose: 9 units Lactulose (Lactulose*) 30 ml PO Q6H PRN PRN Reason: constipation Levothyroxine Sodium (Synthroid Tab*) 137 mcg PO 0600 [facility] Last Admin: 12/22/18 06:15 Dose: 137 mcg Lisinopril (Prinivil Tab*) 10 mg PO QAM [facility] Last Admin: 12/22/18 10:29 Dose: 10 mg Magnesium Hydroxide (Milk Of Magnesia Liq*) 30 ml PO BID [facility] Last Admin: 12/22/18 10:30 Dose: Not Given Magnesium Hydroxide (Milk Of Magnesia Liq*) 30 ml PO Q6H PRN PRN Reason: constipation Morphine Sulfate (Morphine Inj (Syringe))*) 2 mg IV Q2H PRN PRN Reason: PAIN Last Admin: 12/19/18 14:10 Dose: 2 mg Ondansetron HCl (Zofran Inj*) 4 mg IV Q6H PRN PRN Reason: nausea Ondansetron HCl (Zofran Tab*) 4 mg PO Q6H PRN PRN Reason: NAUSEA Oxycodone/Acetaminophen (Percocet 5/325 Tab*) 1 tab PO Q4H PRN PRN Reason: PAIN Last Admin: 12/20/18 19:40 Dose: 1 tab Oxycodone/Acetaminophen (Percocet 5/325 Tab*) 2 tab PO Q4H PRN PRN Reason: PAIN Last Admin: 12/21/18 21:23 Dose: 2 tab Pantoprazole Sodium (Protonix Tab*) 40 mg PO BID [facility] Last Admin: 12/22/18 10:30 Dose: 40 mg Polyethylene Glycol/Electrolytes (Miralax*) 17 gm PO DAILY PRN PRN Reason: Constipation Last Admin: 12/19/18 21:34 Dose: 17 gm Pramipexole Dihydrochloride (Mirapex Tab*) [facility] Last Admin: 12/22/18 10:30 Dose: 0.25 mg Sertraline HCl (Zoloft*) 200 mg PO QAM [facility] Last Admin: 12/22/18 10:30 Dose: 200 mg Triamterene/HCTZ (Dyazide Cap*) [facility] Last Admin: 12/22/18 10:29 Dose: 1 cap Vital Signs - 8 hr 12/22/18 12/22/18 12/22/18 10:28 13:31 16:17 Respiratory 18 18 16 Rate O2 Sat by Pulse 90 Oximetry Oxygen Devices in Use Now: Nasal Cannula Appearance: Comfortable, NAD Eyes: No Scleral Icterus Ears/Nose/Mouth/Throat: Clear Oropharnyx, Mucous Membranes Moist Neck: NL Appearance and Movements; NL JVP Respiratory: Symmetrical Chest Expansion and Respiratory Effort, Clear to Auscultation, - - Occasional wet productive cough noted Cardiovascular: NL Sounds; No Murmurs; No JVD, RRR, No Edema Abdominal: NL Sounds; No Tenderness; No Distention Lymphatic: No Cervical Adenopathy Extremities: No Edema Skin: No Rash or Ulcers Neurological: Alert and Oriented x 3 Nutrition: Taking PO's Result Diagrams: 12/21/18 06:59 12/21/18 06:59 Additional Lab and Data: Laboratory Results - last 24 hr 12/21/18 12/21/18 12/22/18 16:52 21:15 07:38 POC Glucose (mg/dL) 109 H 141 H 38 L* Glucose Meter Confirm 12/22/18 12/22/18 12/22/18 07:51 08:40 12:02 POC Glucose (mg/dL) 97 289 H Glucose Meter Confirm 58 L Microbiology and Other Data: Microbiology 12/17/18 02:15 Urine Urine Culture - Final No Growth (<1,000 CFU/mL) Assess/Plan/Problems-Billing Assessment: Mr. Houston is a 58 yo male with a PMH of cerebral palsy, left hemiplegia, hypertension, depression, CHUY on CPAP who was admitted on for a right patellar tendon repair secondary to fall from wheelchair. - Patient Problems (1) Patellar tendon rupture Comment: - POD # 6 s/p repair - Management per ortho - TTWB R LE for transfers, patient is wheelchair bound, immobilizer on at all times - Continue pain meds with bowel regimen. - ASA for DVT proph per ortho - Briggs d/c'd today 12/20 and patient voiding without difficulty. (2) COPD (chronic obstructive pulmonary disease) Comment: - Occasional productive cough. Lung assessment benign. - Hx of COPD and uses supplemental oxygen at home, therefore, at baseline. - Encouraged cough and flutter valve (3) AUDIE (acute kidney injury) Comment: - Increase in creatinine noted from 1.10 on 12/17 to 1.67 on . and 1.42 yesterday. - Suspected secondary to restart of patient's home lisinopril and dyazide on - Educated on increase PO fluid intake - Recommend rechecking in one week as outpatient (4) Cerebral palsy Comment: - Continue baclofen, diazepam (5) Depression Comment: - Continue sertraline (6) Diabetes Comment: - Occasional morning lows. Today BG as low as 38, therefore, lantus decreased from home dose of 85 to 70 unit. - Continue SSI - Hold tradjenta and metformin until discharge (7) Hyperlipidemia Comment: - Continue atorvastatin (8) Hypertension Comment: - SBP 120-140s. - Resumed triamterine/hctz and lisinopril 12/19 (9) Hypothyroidism Comment: - Continue levothyroxine (10) CHUY (obstructive sleep apnea) Comment: - Continue cpap (11) DVT prophylaxis Comment: - Aspirin per ortho. (12) Full code status Comment: Status and Disposition: Inpatient with disposition per ortho. Awaiting insurance auth for short term rehab. Attending: Moon Yu
[2018-12-22] MEDS: oxyCODONE/Acetamin 5/325 MG* TAB PO PRN (18:46)
[2018-12-22] MEDS: Atorvastatin* 80 MG TAB PO SCH (21:20)
[2018-12-22] MEDS: Insulin GLARGINE(*) 1 UNITS UNIT SUBCUT SCH (21:24)
[2018-12-23] MEDS: oxyCODONE/Acetamin 5/325 MG* TAB PO PRN ×4 (02:46→21:48)
[2018-12-23] MEDS: Levothyroxine TAB* 137 MCG TAB PO SCH (05:52)
[2018-12-23] MEDS: Acetaminophen TAB* 325 MG PO SCH ×3 (05:53→21:51)
[2018-12-23] MEDS: Pramipexole TAB* 0.125 MG PO SCH (09:26)
[2018-12-23] MEDS: Gabapentin CAP(*) 300 MG PO SCH ×3 (09:27→21:50)
[2018-12-23] MEDS: Lisinopril TAB* 10 MG PO SCH (09:27)
[2018-12-23] MEDS: Docusate CAP* 100 MG PO SCH ×2 (09:27→21:50)
[2018-12-23] MEDS: Calcium Polycarbophil TAB* 625 MG PO SCH (09:27)
[2018-12-23] MEDS: Triamterene/HCTZ 37.5-25 MG* CAP PO SCH (09:27)
[2018-12-23] MEDS: Baclofen TAB* 20 MG PO SCH ×3 (09:27→21:50)
[2018-12-23] MEDS: Aspirin TAB* 325 MG PO SCH ×2 (09:27→21:50)
[2018-12-23] MEDS: Pantoprazole TAB * 40 MG TAB PO SCH ×2 (09:27→21:50)
[2018-12-23] MEDS: Insulin LISPRO* 1 UNITS UNIT SUBCUT SCH ×4 (09:28→22:08)
[2018-12-23] MEDS: Sertraline* 100 MG TAB PO SCH (09:28)
[2018-12-23] MEDS: Magnesium Hydroxide LIQ* 30 ML UDC PO SCH ×2 (09:28→21:59)
--- NOTE | 2018-12-23 12:03 | PN ---
Progress Note - Progress Note Date of Service: 12/23/18 SOAP: Subjective: []Patient seen OOB in chair. He is comfortable, being Ryan lifted at this point. Denies SOB, CP, palpitations. Waiting for insurance approval for rehab in [place]. Objective: [] Vital Signs Temp 98.1 F 12/23/18 07:44 Pulse 58 12/23/18 07:44 Resp 14 12/23/18 10:37 BP 135/80 12/23/18 07:44 Pulse Ox 97 12/23/18 07:44 Intake & Output 12/22/18 12/23/18 12/23/18 18:59 06:59 18:59 Intake Total 720 1520 120 Output Total 780 1070 600 Balance -60 450 -480 Intake: Oral 720 1520 120 Output: Urine 780 1070 600 Other: # Bowel Movements 0 Laboratory Results - last 24 hr 12/22/18 12/22/18 12/22/18 12:02 17:07 21:10 POC Glucose (mg/dL) 289 H 144 H 263 H 12/23/18 07:32 POC Glucose (mg/dL) 170 H right knee incision benign, no drainage calf NT wiggles toes, slight dorsiflexion ankle +sensation right foot Assessment: []s/p Right patellar tendon repair POD #6 Plan: []History CP affecting left side Knee immobilizer Ryan lift as needed [place] rehab when auth granted
--- NOTE | 2018-12-23 13:54 | PN ---
Subjective Date of Service: 12/23/18 Interval History: Patient is feeling well today, Patient complains of abnormal movements in right arm. Patient states they are involuntary. Patient states that after he has the episodes his arm feels weak. Patient also states that it affects his right leg with twitching. Patient states this has been happening previously before he came to the hospital and a couple times he felt like he was going to "black out " while they were happening. Patient during interview began to have these movements in increasing frequency and eventually they spread to his whole body but patient retained consciousness during most of these episodes. Patient claims to be tired after these episodes but has no altered level of consciousness. Patient initially claims that he had never told anyone about his episodes before, but then states they had previously been evaluated at [place] but cannot tell what the results of testing were. Patient denies F/C, N/V, abdominal pain, diarrhea, or other pain. Family History: Unchanged from Admission Social History: Unchanged from Admission Past Medical History: Unchanged from Admission Objective Active Medications: Acetaminophen (Tylenol Tab*) 975 mg PO Q8H [facility] Last Admin: 12/23/18 05:53 Dose: Not Given Albuterol (Ventolin 2.5 Mg/3 Ml Neb.Kennedi*) 2.5 mg INH Q4H PRN PRN Reason: SOB/WHEEZING Last Admin: 12/22/18 08:33 Dose: 2.5 mg Aspirin (Aspirin Tab*) 325 mg PO 0900,2100 [facility] Last Admin: 12/23/18 09:27 Dose: 325 mg Atorvastatin Calcium (Lipitor*) 80 mg PO BEDTIME [facility] Last Admin: 12/22/18 21:20 Dose: 80 mg Baclofen (Lioresal Tab*) 20 mg PO TID [facility] Last Admin: 12/23/18 09:27 Dose: 20 mg Bisacodyl (Dulcolax Supp*) 10 mg [place] DAILY PRN PRN Reason: constipation Calcium Polycarbophil (Fibercon Tab*) 625 mg PO QAM [facility] Last Admin: 12/23/18 09:27 Dose: 625 mg Dextrose (D50w Syringe 50 Ml*) 12.5 gm IV PUSH .FOR FS < 60 - SS PRN PRN Reason: FS < 60 Diazepam (Valium Tab(*)) 5 mg PO Q8H PRN PRN Reason: AGITATION Last Admin: 12/21/18 22:24 Dose: 5 mg Diphenhydramine HCl (Benadryl Iv*) 12.5 mg IV Q6H PRN PRN Reason: PRURITIS Docusate Sodium (Colace Cap*) 100 mg PO BID [facility] Last Admin: 12/23/18 09:27 Dose: 100 mg Gabapentin (Neurontin Cap(*)) 300 mg PO TID [facility] Last Admin: 12/23/18 09:27 Dose: 300 mg Insulin Glargine (Lantus(*)) 70 units SUBCUT BEDTIME [facility] Last Admin: 12/22/18 21:24 Dose: 70 units Insulin Human Lispro (Humalog*) 0 units SUBCUT [facility]; Protocol Last Admin: 12/23/18 09:28 Dose: 3 units Lactulose (Lactulose*) 30 ml PO Q6H PRN PRN Reason: constipation Levothyroxine Sodium (Synthroid Tab*) 137 mcg PO 0600 [facility] Last Admin: 12/23/18 05:52 Dose: 137 mcg Lisinopril (Prinivil Tab*) 10 mg PO QAM [facility] Last Admin: 12/23/18 09:27 Dose: 10 mg Magnesium Hydroxide (Milk Of Magnesia Liq*) 30 ml PO BID [facility] Last Admin: 12/23/18 09:28 Dose: Not Given Magnesium Hydroxide (Milk Of Magnesia Liq*) 30 ml PO Q6H PRN PRN Reason: constipation Morphine Sulfate (Morphine Inj (Syringe))*) 2 mg IV Q2H PRN PRN Reason: PAIN Last Admin: 12/19/18 14:10 Dose: 2 mg Ondansetron HCl (Zofran Inj*) 4 mg IV Q6H PRN PRN Reason: nausea Ondansetron HCl (Zofran Tab*) 4 mg PO Q6H PRN PRN Reason: NAUSEA Oxycodone/Acetaminophen (Percocet 5/325 Tab*) 1 tab PO Q4H PRN PRN Reason: PAIN Last Admin: 12/23/18 10:37 Dose: 1 tab Oxycodone/Acetaminophen (Percocet 5/325 Tab*) 2 tab PO Q4H PRN PRN Reason: PAIN Last Admin: 12/21/18 21:23 Dose: 2 tab Pantoprazole Sodium (Protonix Tab*) 40 mg PO BID [facility] Last Admin: 12/23/18 09:27 Dose: 40 mg Polyethylene Glycol/Electrolytes (Miralax*) 17 gm PO DAILY PRN PRN Reason: Constipation Last Admin: 12/19/18 21:34 Dose: 17 gm Pramipexole Dihydrochloride (Mirapex Tab*) [facility] Last Admin: 12/23/18 09:26 Dose: 0.25 mg Sertraline HCl (Zoloft*) 200 mg PO QAM [facility] Last Admin: 12/23/18 09:28 Dose: 200 mg Triamterene/HCTZ (Dyazide Cap*) 1 cap PO QAM [facility] Last Admin: 12/23/18 09:27 Dose: 1 cap Vital Signs - 8 hr 12/23/18 12/23/18 12/23/18 07:44 09:27 09:55 Temperature 98.1 F Pulse Rate 58 Respiratory 20 18 18 Rate Blood Pressure 135/80 (mmHg) O2 Sat by Pulse 97 Oximetry 12/23/18 12/23/18 10:37 13:28 Temperature 99.1 F Pulse Rate 59 Respiratory 14 18 Rate Blood Pressure 108/50 (mmHg) O2 Sat by Pulse 94 Oximetry Oxygen Devices in Use Now: None Appearance: Patient is a 58yo male who appears stated age and is sitting in the bed in [facility]. Eyes: No Scleral Icterus, PERRLA Ears/Nose/Mouth/Throat: NL Teeth, Lips, Gums, Clear Oropharnyx, Mucous Membranes Moist Neck: NL Appearance and Movements; NL JVP, Trachea Midline Respiratory: Symmetrical Chest Expansion and Respiratory Effort, Clear to Auscultation Cardiovascular: NL Sounds; No Murmurs; No JVD, RRR, No Edema Abdominal: NL Sounds; No Tenderness; No Distention, No Hepatosplenomegaly Lymphatic: No Cervical Adenopathy Extremities: No Edema, No Clubbing, Cyanosis Skin: No Rash or Ulcers, No Nodules or Sclerosis Neurological: Alert and Oriented x 3, - - Left sided 3/5 strength. CN II-XII intact. Result Diagrams: 12/21/18 06:59 12/21/18 06:59 Additional Lab and Data: Laboratory Results - last 24 hr 12/21/18 12/21/18 12/22/18 16:52 21:15 07:38 POC Glucose (mg/dL) 109 H 141 H 38 L* Glucose Meter Confirm 12/22/18 12/22/18 12/22/18 07:51 08:40 12:02 POC Glucose (mg/dL) 97 289 H Glucose Meter Confirm 58 L Microbiology and Other Data: Microbiology 12/17/18 02:15 Urine Urine Culture - Final No Growth (<1,000 CFU/mL) Assess/Plan/Problems-Billing Assessment: Mr. Houston is a 58 yo male with a PMH of cerebral palsy, left hemiplegia, hypertension, depression, CHUY on CPAP who was admitted on for a right patellar tendon repair secondary to fall from wheelchair who is improving slowly with PT/ OT but is awaiting placement. Patient today began to have involuntary movements which are being evaluated. - Patient Problems (1) Patellar tendon rupture Current Visit: Yes Status: Acute Code(s): S86.819A - STRAIN OF MUSC/TEND AT LOWER LEG LEVEL, UNSP LEG, INIT SNOMED Code(s): 94744356 Comment: - POD # 7 s/p repair - Management per ortho - TTWB R LE for transfers, patient is wheelchair bound, immobilizer on at all times - Continue pain meds with bowel regimen. - ASA for DVT proph per ortho - Briggs d/c'd today 12/20 and patient voiding without difficulty. (2) Involuntary movements Current Visit: Yes Status: Acute Code(s): R25.9 - UNSPECIFIED ABNORMAL INVOLUNTARY MOVEMENTS SNOMED Code(s): 317543683 Comment: - Mainly of right arm, long documented history of this with negative EEGs and ambulatory EEGs going back 20 years. - Increasing in frequency, has features strongly suggesting against epileptic seizures including bilateral movements without alteration in consciousness, asymmetrical movements, and lack of true postictal period. - Neurology eval appreciated, agree that this is unlikely to be epileptic seizures. EEG and Brain imaging pending for full evaluation. (3) COPD (chronic obstructive pulmonary disease) Current Visit: Yes Status: Acute Code(s): J44.9 - CHRONIC OBSTRUCTIVE PULMONARY DISEASE, UNSPECIFIED SNOMED Code(s): 87162247 Comment: - Occasional productive cough. Lung assessment benign. - Hx of COPD and uses supplemental oxygen at home, therefore, at baseline. - Encouraged cough and flutter valve (4) Cerebral palsy Current Visit: Yes Status: Acute Code(s): G80.9 - CEREBRAL PALSY, UNSPECIFIED SNOMED Code(s): 508102797 Comment: - Continue baclofen, diazepam (5) Diabetes Current Visit: Yes Status: Acute Code(s): E11.9 - TYPE 2 DIABETES MELLITUS WITHOUT COMPLICATIONS SNOMED Code(s): 28201174 Comment: - Occasional morning lows. Today BG as low as 38, therefore, lantus decreased from home dose of 85 to 70 unit. - Continue SSI - Hold tradjenta and metformin until discharge (6) Hyperlipidemia Current Visit: Yes Status: Acute Code(s): E78.5 - HYPERLIPIDEMIA, UNSPECIFIED SNOMED Code(s): 51356687 Comment: - Continue atorvastatin (7) Hypertension Current Visit: Yes Status: Acute Code(s): I10 - ESSENTIAL (PRIMARY) HYPERTENSION SNOMED Code(s): 06507134 Comment: - SBP 120-140s. - Resumed triamterine/hctz and lisinopril 12/19 (8) Hypothyroidism Current Visit: Yes Status: Acute Code(s): E03.9 - HYPOTHYROIDISM, UNSPECIFIED SNOMED Code(s): 90070699 Comment: - Continue levothyroxine (9) CHUY (obstructive sleep apnea) Current Visit: Yes Status: Acute Code(s): G47.33 - OBSTRUCTIVE SLEEP APNEA ( ADULT) (PEDIATRIC) SNOMED Code(s): 72931202 Comment: - Continue cpap (10) DVT prophylaxis Current Visit: Yes Status: Acute Code(s): AOJ1684 - SNOMED Code(s): 792704969 Comment: - Aspirin per ortho. (11) Full code status Current Visit: Yes Status: Acute Code(s): Z78.9 - OTHER SPECIFIED HEALTH STATUS SNOMED Code(s): 887793057 Comment: Status and Disposition: Inpatient with disposition per ortho. Awaiting insurance auth for short term rehab.
--- NOTE | 2018-12-23 17:51 | CONS ---
CC: Dr. Angelic Fonseca; Dr. Micky Whalen* CONSULTATION REPORT: DATE OF CONSULT: 12/23/18 PRIMARY CARE PHYSICIAN: Angelic Fonseca MD. REASON FOR CONSULT: Seizure like activity. HISTORY OF PRESENT ILLNESS: Mr. Houston is a 58-year-old gentleman with history of cerebral palsy with left hemiplegia, history of hypertension, COPD, diabetes , history of recent right patellar tendon surgery on 12/16/18. He has been in the surgical unit since that time recuperating and has been doing fairly well. Although, today, apparently in front of the nurse and Dr. Ramires, he had an episode where his hand started to shake and he started to thrust his chest, this lasted for a few seconds and then went away. He had an another episode where he closed his eyes and then afterwards wake up after 10 to 15 seconds and was a little bit confused, wanted to know where he was; this quickly cleared. There was no tongue biting. No bladder and bowel incontinence. I had the opportunity to go back and review notes dating back to 1993, he has seen Dr. Ornelas and Dr. Suarez in the past. He has also been evaluated with ambulatory EEG. He has had similar episodes in the past of presumed altered consciousness with also abnormal movements of the arms in torso. Some of these episodes were captured on ambulatory EEG and it was most likely due to patient suffering from psychogenic nonepileptic seizures. Reviewing his records in the distant past, he was on Dilantin for few months. He was also on Tegretol, but given the nature of his symptoms, he has been off of medications for quite some time. I did discuss with him the fact that he saw Dr. Suarez in the past and Dr. Ornelas. He remembers this and states that he has been having this episodes for years, that they come and go and typically come in waves. While I was in the room, he had an episode that consisted of arm flapping and chest flapping with some mild pelvic thrusting. His eyes were closed, although at one point, he was talking to me, he notes afterwards that he could not remember what happened after the last few seconds, but quickly regained an awareness of what happened and then he told me that this is what happens when he has seizures and this happens frequently, although he has not had any reported episodes until today. I was asked to see the patient for possible seizure like activity. The patient states that he has never had any tongue biting, but that he might have had some bladder or bowel incontinence in the distant past but none recently. He is on insulin for a history of diabetes, but he is on no seizure medications at this time. PAST MEDICAL HISTORY: As noted above. PAST SURGICAL HISTORY: Includes 2 triple arthrodesis, right Achilles tendon repair as a child, appendectomy, right orchiectomy, and then the patellar tendon repair as well. CURRENT MEDICATIONS: Include: 1. Tylenol q.8 hours scheduled. 2. Albuterol. 3. Aspirin 325 mg daily. 4. Lipitor 80 mg at bedtime. 5. Baclofen 20 mg p.o. t.i.d. 6. Dulcolax 10 mg p.r. daily. 7. 8. Valium 5 mg p.o. q.8 hours p.r.n. agitation. 9. Benadryl 12.5 mg IV q.6 hours. 10. Colace. 11. Gabapentin 300 mg p.o. t.i.d. 12. Insulin sliding scale. 13. Insulin Lantus 70 units at bedtime. 14. Lactulose. 15. Synthroid 137 mcg. 16. Lisinopril 10 mg p.o. q.a.m. 17. Magnesium hydroxide. 18. Morphine p.r.n. 19. Zofran p.r.n. ALLERGIES: He has multiple allergies to include HALOPERIDOL, HYDROMORPHONE, NSAIDS, MORPHINE, LORATADINE, PENICILLINS, SELDANE, COGENTIN, CODEINE, IV DYE, LACTOSE, BENZTROPINE. FAMILY HISTORY: Significant for mother with COPD. Father of old age. He has 3 siblings. SOCIAL HISTORY: He continues to smoke. He has a long history of smoking. No drug use. Apparently surrogate decision maker is his friend, Dora Mendoza. He states that he no longer is ambulatory probably because he keeps having these events. REVIEW OF SYSTEMS: In 14 organ systems as noted above, otherwise negative. PHYSICAL EXAM: Vital signs: Temperature 98.1, pulse rate of 58, respiratory rate of 20, O2 sat of 97%, blood pressure 135/80. General: He is well- nourished, well developed gentleman, in no acute distress, lying in his bedside chair. He is pleasant, somewhat disheveled. HEENT: Normocephalic, atraumatic. Sclerae are anicteric. Mucous membranes are moist. Oropharynx is clear. He has poor dentition. Neck is supple. No thyromegaly. No carotid bruits. Chest: Clear to auscultation bilaterally. Cardiovascular: Regular rate and rhythm. Abdomen is nontender. He is obese. Extremities: He has a brace on his right leg. He has some 1+ nonpitting edema in his feet bilaterally. Skin is otherwise warm and dry. Neurologic exam: He is awake, alert. He is oriented to person, place, and time. His speech is fluent with some mild dysarthria, speech impairment. Pupils are equal, round, and reactive to light. Extraocular muscles appeared to be intact. There is no nystagmus appreciated. Visual mcmullen appear full to confrontation. Face is symmetric. Facial sensation is intact. Palate raises symmetrically. Tongue is midline. Motor exam, he spontaneously moves all extremities antigravity. He has had some contracture of his left arm, mild in nature, and contracture of his left finger which is moderate in nature. He has well preserved strength in the right upper extremity. He has some limitations of movement with good strength in the left upper extremity. He has limited movement of the right lower extremity because of the recent surgery. He has some increased tone in the left lower extremity with some inability to bend his left leg, but no contractures present. He states that his sensation is intact to light touch and pinprick in all 4 extremities. [id number] and rapid alternating movements on the right are intact. On the left, he has some difficulty due to his spastic hemiplegia. Gait cannot be tested at this time. DIAGNOSTIC STUDIES/LAB DATA: Lab work includes hemoglobin 11.2, hematocrit of 34, platelet count 227. Chemistry, blood glucose 263 to 170 to 175. BMP, chloride is 99, BUN of 37, creatinine of 1.42. ASSESSMENT AND PLAN: Ms. Houston is a 58-year-old gentleman with a history of cerebral palsy, history of prior seizure like activity dating back to at least 1993, previously seen by Dr. Suarez and Dr. Ornelas, who both felt that his episodes are most likely nonepileptic in nature. He has had monitoring in the past including EEGs which are normal as well as 24 hour ambulatory monitoring which apparently captured several of the events and showed no seizure activity. Today, he had several episodes of arm flapping and some confusion. He had one episode in front of me, which appeared to be nonepileptic in nature and my suspicion is that he is suffering from nonepileptic events. Plan is to get CT scan of head to look for any acute changes. I am also going to get baseline EEG today. Assuming that those 2 show no acute abnormalities, I would recommend not starting him on any seizure medication. It is true that certain percentage of people with nonepileptic events can have epileptic seizures as well and he does have cerebral palsy, which would make him at higher risk. In addition, he is on several medication including baclofen which could lower seizure threshold. With that said, again my suspicion for seizures given a semiology and given the witnessed seizure today, it is very low these are epileptic in nature. I would recommend that you schedule follow up with me as an outpatient upon discharge, assuming his EEG shows no seizure-like potentials. Thank you for the opportunity to participate in the care of this very interesting patient. [id number]/[facility] #: [id number] SIMONE
[2018-12-23] MEDS: Atorvastatin* 80 MG TAB PO SCH (21:49)
[2018-12-23] MEDS: Insulin GLARGINE(*) 1 UNITS UNIT SUBCUT SCH (22:07)
[2018-12-23] MEDS ORDERED: oxyCODONE/Acetamin 5/325 MG* TAB PO PRN (23:33)
[2018-12-24] MEDS: oxyCODONE/Acetamin 5/325 MG* TAB PO PRN ×4 (04:54→21:13)
[2018-12-24] MEDS: Levothyroxine TAB* 137 MCG TAB PO SCH (04:54)
[2018-12-24] MEDS: Acetaminophen TAB* 325 MG PO SCH ×3 (04:55→21:36)
--- NOTE | 2018-12-24 09:34 | PN ---
Subjective Date of Service: 12/24/18 Interval History: Pt reports "I feel much better overall today". He reports no pain at rest in his knee. Denies SOB. reports an occasional cough, no sputum production. Reports good appetite. Reports an occasional further involuntary movement in his arms but states these are better than yesterday; denies mental status changes No fever/chills. Family History: Unchanged from Admission Social History: Unchanged from Admission Past Medical History: Unchanged from Admission Objective Active Medications: Acetaminophen (Tylenol Tab*) 975 mg PO Q8H [facility] Last Admin: 12/24/18 04:55 Dose: Not Given Albuterol (Ventolin 2.5 Mg/3 Ml Neb.Kennedi*) 2.5 mg INH Q4H PRN PRN Reason: SOB/WHEEZING Last Admin: 12/22/18 08:33 Dose: 2.5 mg Aspirin (Aspirin Tab*) 325 mg PO 0900,2100 [facility] Last Admin: 12/23/18 21:50 Dose: 325 mg Atorvastatin Calcium (Lipitor*) 80 mg PO BEDTIME [facility] Last Admin: 12/23/18 21:49 Dose: 80 mg Baclofen (Lioresal Tab*) 20 mg PO TID [facility] Last Admin: 12/23/18 21:50 Dose: 20 mg Bisacodyl (Dulcolax Supp*) 10 mg GA DAILY PRN PRN Reason: constipation Calcium Polycarbophil (Fibercon Tab*) 625 mg PO QAM [facility] Last Admin: 12/23/18 09:27 Dose: 625 mg Dextrose (D50w Syringe 50 Ml*) 12.5 gm IV PUSH .FOR FS < 60 - SS PRN PRN Reason: FS < 60 Diazepam (Valium Tab(*)) 5 mg PO Q8H PRN PRN Reason: AGITATION Last Admin: 12/21/18 22:24 Dose: 5 mg Diphenhydramine HCl (Benadryl Iv*) 12.5 mg IV Q6H PRN PRN Reason: PRURITIS Docusate Sodium (Colace Cap*) 100 mg PO BID [facility] Last Admin: 12/23/18 21:50 Dose: 100 mg Gabapentin (Neurontin Cap(*)) 300 mg PO TID [facility] Last Admin: 12/23/18 21:50 Dose: 300 mg Insulin Glargine (Lantus(*)) 70 units SUBCUT BEDTIME [facility] Last Admin: 12/23/18 22:07 Dose: 70 units Insulin Human Lispro (Humalog*) 0 units SUBCUT ACHS [facility]; Protocol Last Admin: 12/23/18 22:08 Dose: 3 units Lactulose (Lactulose*) 30 ml PO Q6H PRN PRN Reason: constipation Levothyroxine Sodium (Synthroid Tab*) 137 mcg PO 0600 [facility] Last Admin: 12/24/18 04:54 Dose: 137 mcg [facility]inop[facility] ([facility]in[facility]*) [facility] Admin: 12/23/18 09:27 Dose: 10 mg Magnesium Hydroxide (Milk Of Magnesia Liq*) 30 ml PO BID [facility] Last Admin: 12/23/18 21:59 Dose: 30 ml Magnesium Hydroxide (Milk Of Magnesia Liq*) 30 ml PO Q6H PRN PRN Reason: constipation Ondansetron HCl (Zofran Inj*) 4 mg IV Q6H PRN PRN Reason: nausea Ondansetron HCl (Zofran Tab*) 4 mg PO Q6H PRN PRN Reason: NAUSEA Oxycodone/Acetaminophen (Percocet 5/325 Tab*) 1 tab PO Q4H PRN PRN Reason: Pain 1-5 Last Admin: 12/24/18 04:54 Dose: 1 tab Oxycodone/Acetaminophen (Percocet 5/325 Tab*) 2 tab PO Q4H PRN PRN Reason: Pain 6-10 Pantoprazole Sodium (Protonix Tab*) 40 mg PO BID [facility] Last Admin: 12/23/18 21:50 Dose: 40 mg Polyethylene Glycol/Electrolytes (Miralax*) 17 gm PO DAILY PRN PRN Reason: Constipation Last Admin: 12/19/18 21:34 Dose: 17 gm Pramipexole Dihydrochloride (Mirapex Tab*) 0.25 mg PO [facility] Last Admin: 12/23/18 09:26 Dose: 0.25 mg Sertraline HCl (Zoloft*) 200 mg PO [facility] Last Admin: 12/23/18 09:28 Dose: 200 mg Triamterene/HCTZ (Dyazide Cap*) 1 cap PO [facility] Last Admin: 12/23/18 09:27 Dose: 1 cap Vital Signs - 8 hr 0412/24/18 12/24/18 03:25 04:48 04:54 Temperature 97.4 F Pulse Rate 45 Respiratory 16 18 Rate Blood Pressure 86/51 111/59 (mmHg) O2 Sat by Pulse 94 Oximetry 12/24/18 12/24/18 06:54 07:33 Temperature 97.7 F Pulse Rate 54 Respiratory 16 16 Rate Blood Pressure 98/56 (mmHg) O2 Sat by Pulse Oximetry Oxygen Devices in Use Now: Nasal Cannula Appearance: obese male sitting up in bed watching TV A+O x3 in NAD Eyes: No Scleral Icterus, PERRLA Ears/Nose/Mouth/Throat: Mucous Membranes Moist Neck: NL Appearance and Movements; NL JVP Respiratory: Symmetrical Chest Expansion and Respiratory Effort, Clear to Auscultation Cardiovascular: NL Sounds; No Murmurs; No JVD, RRR Abdominal: NL Sounds; No Tenderness; No Distention, - - obese; distended Extremities: - - right knee wrapped in octaviano wrap and brace Neurological: Alert and Oriented x 3, NL Sensation Lines/Tubes/Other Access: Clean, Dry and Intact Peripheral IV Nutrition: Taking PO's Result Diagrams: 12/21/18 06:59 12/21/18 06:59 Additional Lab and Data: Laboratory Results - last 24 hr 12/21/18 12/21/18 12/22/18 16:52 21:15 07:38 POC Glucose (mg/dL) 109 H 141 H 38 L* Glucose Meter Confirm 12/22/18 12/22/18 12/22/18 07:51 08:40 12:02 POC Glucose (mg/dL) 97 289 H Glucose Meter Confirm 58 L Microbiology and Other Data: Microbiology 12/17/18 02:15 Urine Urine Culture - Final No Growth (<1,000 CFU/mL) Assess/Plan/Problems-Billing Assessment: Mr. Houston is a 58 yo male with a PMH of cerebral palsy, left hemiplegia, hypertension, depression, CHUY on CPAP who was admitted on for a right patellar tendon repair secondary to fall from wheelchair who is improving slowly with PT/ OT but is awaiting placement. - Patient Problems (1) Patellar tendon rupture Comment: - POD #8 s/p repair - Management per ortho - TTWB R LE for transfers, patient is wheelchair bound, immobilizer on at all times - Continue pain meds with bowel regimen. - ASA for DVT proph per ortho (2) COPD (chronic obstructive pulmonary disease) Comment: - Stable - Hx of COPD and uses supplemental oxygen at home, therefore, at baseline. - Encouraged flutter valve (3) Involuntary movements Comment: - Mainly of right arm, long documented history of this with negative EEGs and ambulatory EEGs going back 20 years. - Now reports decreasing increasing in frequency today - Neurology eval appreciated, agree that this is unlikely to be epileptic seizures. EEG pending for full evaluation. CT brain negative. Dr. carter would like to see him in f/u after discharge (4) Cerebral palsy Comment: - Continue baclofen, diazepam (5) Diabetes Comment: - Occasional morning lows. BG was low at 38 2 days ago, lantus decreased from home dose of 85 to 70 unit. No further lows noted - Continue SSI - Hold tradjenta and metformin until discharge (6) Hyperlipidemia Comment: - Continue atorvastatin (7) Hypertension Comment: - Stable - Resumed triamterine/hctz and lisinopril 12/19 (8) Hypothyroidism Comment: - Continue levothyroxine (9) CHUY (obstructive sleep apnea) Comment: - Continue cpap (10) DVT prophylaxis Comment: - Aspirin per ortho. (11) Full code status Comment: Status and Disposition: Inpatient with disposition per ortho. Awaiting insurance auth for short term rehab.
[2018-12-24] MEDS: Docusate CAP* 100 MG PO SCH ×2 (09:42→21:16)
[2018-12-24] MEDS: Calcium Polycarbophil TAB* 625 MG PO SCH (09:42)
[2018-12-24] MEDS: Gabapentin CAP(*) 300 MG PO SCH ×3 (09:43→21:13)
[2018-12-24] MEDS: Sertraline* 100 MG TAB PO SCH (09:43)
[2018-12-24] MEDS: Magnesium Hydroxide LIQ* 30 ML UDC PO SCH ×2 (09:43→21:16)
[2018-12-24] MEDS: Pramipexole TAB* 0.125 MG PO SCH (09:43)
[2018-12-24] MEDS: Pantoprazole TAB * 40 MG TAB PO SCH ×2 (09:43→21:13)
[2018-12-24] MEDS: Baclofen TAB* 20 MG PO SCH ×3 (09:43→21:13)
[2018-12-24] MEDS: Aspirin TAB* 325 MG PO SCH ×2 (09:43→21:13)
[2018-12-24] MEDS: Lisinopril TAB* 10 MG PO SCH (09:44)
[2018-12-24] MEDS: Triamterene/HCTZ 37.5-25 MG* CAP PO SCH (09:45)
[2018-12-24] MEDS: Insulin LISPRO* 1 UNITS UNIT SUBCUT SCH ×4 (09:51→21:14)
--- NOTE | 2018-12-24 10:08 | PN ---
Progress Note - Progress Note Date of Service: 12/24/18 SOAP: Subjective: [Patient reports pain managed fairly well with po meds. Denies CP, SOB, dizziness. Was evaluated last night for seizure-like activity - see consult. Pt reports no further episodes.] Objective: [A and O x 3 NAD R knee Dressing change - surgical incision benign. Knee immobilizer adjusted to keep knee in more extended position. Foot elevated 2 pillows. Calf soft, NT. Distal gross motor, NV function intact Vital Signs: Temp Pulse Resp BP Pulse Ox 97.7 F 54 16 98/56 94 12/24/18 07:33 12/24/18 07:33 12/24/18 09:43 12/24/18 07:33 12/24/18 03:25 Laboratory Results - last 24 hr 12/23/18 12/23/18 12/24/18 12:06 17:22 08:59 POC Glucose (mg/dL) 175 H 200 H 141 H ] Assessment: [58 yo male with h/o CP, seizures s/p R patellar tendon repair POD # 7] Plan: [PT - OOB as able. Ryan lift as needed Dispo planning to rehab in [place] F/U with neurology as outpatient]
[2018-12-24] MEDS: Atorvastatin* 80 MG TAB PO SCH (21:13)
[2018-12-24] MEDS: Insulin GLARGINE(*) 1 UNITS UNIT SUBCUT SCH (21:15)
[2018-12-25] MEDS ORDERED: Cyclobenzaprine TAB* 10 MG PO PRN (03:24)
[2018-12-25] MEDS: Diazepam TAB(*) 5 MG PO PRN ×2 (03:26→16:18)
[2018-12-25] MEDS: Acetaminophen TAB* 325 MG PO SCH ×3 (04:57→21:01)
[2018-12-25] MEDS: Levothyroxine TAB* 137 MCG TAB PO SCH (05:39)
--- NOTE | 2018-12-25 08:08 | PN ---
Progress Note - Progress Note Date of Service: 12/25/18 SOAP: Subjective: [Pt reports muscle spasms in R leg that kept him awake last night. Valium was somewhat helpful. Otherwise, pain is manageable with meds. Denies CP, SOB, nausea] Objective: [A and O x 3, NAD R knee dressing, cryounit, knee immobilizer in place Distal nv function and gross motor intact Vital Signs: Temp Pulse Resp BP Pulse Ox 97.9 F 54 18 125/56 96 12/25/18 03:23 12/25/18 03:23 12/25/18 05:40 12/25/18 03:23 12/25/18 03:23 Laboratory Results - last 24 hr 12/23/18 12/24/18 12/24/18 21:49 08:59 11:43 POC Glucose (mg/dL) 214 H 141 H 212 H 12/24/18 12/24/18 12/25/18 17:09 21:05 07:36 POC Glucose (mg/dL) 185 H 172 H 81 ] Assessment: [s/p R patellar tendon repair pod #8] Plan: [Flexeril ordered for spasms Dispo planning for rehab in [place]] f/u with neuro as outpatient
[2018-12-25 08:15] LABS: ABS Basophils 0.1 10^3/ul (0-0.2); ABS Eosinophils 0.3 10^3/ul (0-0.6); ABS Lymphocytes 1.6 10^3/ul (1.0-4.8); ABS Monocytes 0.9 10^3/ul (0-0.8); ABS Neutrophils 8.5 10^3/ul (1.5-7.7); ABS Nucleated RBC 0 10^3/ul; Hematocrit 35 % (36-46); Hemoglobin 11.1 g/dL (14.0-18.0); Lymphocyte % 13.6 %; Mean Corpuscular HGB Conc 32 g/dL (31-36); Mean Corpuscular Hemoglobin 29 pg (27-31); Mean Corpuscular Volume 90 fL (80-94); Mean Platelet Volume 7.5 fL (7.4-10.4); Nucleated Red Blood Cells % 0.1; Platelet Count 415 10^3/uL (150-450); Red Blood Count 3.87 10^6 /uL (4.18-5.48); Red Cell Distribution Width 15 % (10.5-15); White Blood Count 11.4 10^3/uL (3.5-10.8)
[2018-12-25 08:35] LABS: BUN/Creatinine Ratio 28.8 (8-20); Calcium 9.5 mg/dL (8.6-10.3); EGFR African American 66.9 (>60); EGFR Non-African American 55.3 (>60); Potassium 4.4 mmol/L (3.5-5.0)
[2018-12-25] MEDS: Aspirin TAB* 325 MG PO SCH ×2 (08:46→21:01)
[2018-12-25] MEDS: Insulin LISPRO* 1 UNITS UNIT SUBCUT SCH ×4 (08:46→20:52)
[2018-12-25] MEDS: Lisinopril TAB* 10 MG PO SCH (08:47)
[2018-12-25] MEDS: Sertraline* 100 MG TAB PO SCH (08:48)
[2018-12-25] MEDS: Magnesium Hydroxide LIQ* 30 ML UDC PO SCH ×2 (08:48→21:04)
[2018-12-25] MEDS: Gabapentin CAP(*) 300 MG PO SCH ×3 (08:49→21:04)
[2018-12-25] MEDS: Docusate CAP* 100 MG PO SCH ×2 (08:49→21:01)
[2018-12-25] MEDS: Baclofen TAB* 20 MG PO SCH ×3 (08:49→21:01)
[2018-12-25] MEDS: Calcium Polycarbophil TAB* 625 MG PO SCH (08:49)
[2018-12-25] MEDS: Pantoprazole TAB * 40 MG TAB PO SCH ×2 (08:50→21:02)
[2018-12-25] MEDS: Triamterene/HCTZ 37.5-25 MG* CAP PO SCH (08:50)
[2018-12-25] MEDS: Pramipexole TAB* 0.125 MG PO SCH (08:50)
[2018-12-25] MEDS: oxyCODONE/Acetamin 5/325 MG* TAB PO PRN (09:14)
--- NOTE | 2018-12-25 12:49 | EEG ---
ELECTROENCEPHALOGRAM REPORT: DATE OF STUDY: 12/23/18 REFERRING PROVIDER: Dr. Merrill.* LOCATION: He is an inpatient. CLINICAL HISTORY: History of psychogenic nonepileptic spells. The patient has been exhibiting lower and upper body jerking since hospitalization for patellar tendon repair. MEDICATIONS: Include: 1. Morphine. 2. Lactulose. 3. Diazepam. 4. Ventolin. 5. Dyazide. 6. Sertraline. 7. Levothyroxine. 8. Atorvastatin. 9. Gabapentin. 10. Insulin. 11. Baclofen. REPORT: This 19-channel EEG is remarkable for background rhythms consisting of an low-abundant alpha rhythm in the posterior derivations at about 10 cycles per second which is symmetric. Low-voltage beta rhythms otherwise predominantly. The patient is clinically awake. The patient had an episode of bilateral head shaking lasting approximately 10 to 15 seconds. This was associated with movement artifact, but there were no electrographic abnormalities. Normal background rhythm was resumed after head shaking. The patient was given a keyword to remember by the technologist during the episode, which he did not remember few seconds later. The patient subsequently drowsed occasionally with background slowing noted, but did not fall asleep. There were no further clinical events. The patient did not achieve stage II sleep. Activation procedures were not attempted. There were focal, lateralized, or epileptiform abnormalities. CLINICAL IMPRESSION: Normal awake and drowsy EEG. There was an episode of bilateral head shaking with lack of recollection of the keyword given by the technologist. There was movement artifact, but no epileptiform abnormalities. [id number]/[facility] #: [id number] [facility]
--- NOTE | 2018-12-25 16:27 | PN ---
Subjective Date of Service: 12/25/18 Interval History: . reports he is feeling well. reports pain is controlled. feels "sluggish" from laying around so much and feels limited due to the brace. denies any fever or chills. Family History: Unchanged from Admission Social History: Unchanged from Admission Past Medical History: Unchanged from Admission Objective Active Medications: Acetaminophen (Tylenol Tab*) 975 mg PO Q8H [facility] Last Admin: 12/25/18 13:13 Dose: 975 mg Albuterol (Ventolin 2.5 Mg/3 Ml Neb.Kennedi*) 2.5 mg INH Q4H PRN PRN Reason: SOB/WHEEZING Last Admin: 12/22/18 08:33 Dose: 2.5 mg Aspirin (Aspirin Tab*) 325 mg PO 0900,2100 [facility] Last Admin: 12/25/18 08:46 Dose: 325 mg Atorvastatin Calcium (Lipitor*) 80 mg PO BEDTIME [facility] Last Admin: 12/24/18 21:13 Dose: 80 mg Baclofen (Lioresal Tab*) 20 mg PO TID [facility] Last Admin: 12/25/18 13:13 Dose: 20 mg Bisacodyl (Dulcolax Supp*) 10 mg MO DAILY PRN PRN Reason: constipation Calcium Polycarbophil (Fibercon Tab*) 625 mg PO QAM [facility] Last Admin: 12/25/18 08:49 Dose: 625 mg Cyclobenzaprine HCl (Flexeril Tab*) 10 mg PO TID PRN PRN Reason: DISCOMFORT Dextrose (D50w Syringe 50 Ml*) 12.5 gm IV PUSH .FOR FS < 60 - SS PRN PRN Reason: FS < 60 Diazepam (Valium Tab(*)) 5 mg PO Q8H PRN PRN Reason: AGITATION Last Admin: 12/25/18 03:26 Dose: 5 mg Diphenhydramine HCl (Benadryl Iv*) 12.5 mg IV Q6H PRN PRN Reason: PRURITIS Docusate Sodium (Colace Cap*) 100 mg PO BID [facility] Last Admin: 12/25/18 08:49 Dose: 100 mg Gabapentin (Neurontin Cap(*)) 300 mg PO TID [facility] Last Admin: 12/25/18 13:45 Dose: 300 mg Insulin Glargine (Lantus(*)) 70 units SUBCUT BEDTIME [facility] Last Admin: 12/24/18 21:15 Dose: 70 units Insulin Human Lispro (Humalog*) 0 units SUBCUT ACHS [facility]; Protocol Last Admin: 12/25/18 13:15 Dose: 6 units Lactulose (Lactulose*) 30 ml PO Q6H PRN PRN Reason: constipation Levothyroxine Sodium (Synthroid Tab*) 137 mcg PO 0600 [facility] Last Admin: 12/25/18 05:39 Dose: 137 mcg Lisinopril ([facility]inivil Tab*) [facility] [place] Admin: 12/25/18 08:47 Dose: 10 mg Magnesium Hydroxide (Milk Of Magnesia Liq*) 30 ml PO BID [facility] Last Admin: 12/25/18 08:48 Dose: 30 ml Magnesium Hydroxide (Milk Of Magnesia Liq*) 30 ml PO Q6H PRN PRN Reason: constipation Ondansetron HCl (Zofran Inj*) 4 mg IV Q6H PRN PRN Reason: nausea Ondansetron HCl (Zofran Tab*) 4 mg PO Q6H PRN PRN Reason: NAUSEA Oxycodone/Acetaminophen (Percocet 5/325 Tab*) 1 tab PO Q4H PRN PRN Reason: Pain 1-5 Last Admin: 12/25/18 09:14 Dose: 1 tab Oxycodone/Acetaminophen (Percocet 5/325 Tab*) 2 tab PO Q4H PRN PRN Reason: Pain 6-10 Pantoprazole Sodium (Protonix Tab*) 40 mg PO BID [facility] Last Admin: 12/25/18 08:50 Dose: 40 mg Polyethylene Glycol/Electrolytes (Miralax*) 17 gm PO DAILY PRN PRN Reason: Constipation Last Admin: 12/19/18 21:34 Dose: 17 gm Pramipexole Dihydrochloride (Mirapex Tab*) 0.25 mg PO [facility] Last Admin: 12/25/18 08:50 Dose: 0.25 mg Sertraline HCl (Zoloft*) 200 mg PO [facility] Last Admin: 12/25/18 08:48 Dose: 200 mg Triamterene/HCTZ (Dyazide Cap*) 1 cap PO [facility] Last Admin: 12/25/18 08:50 Dose: 1 cap Vital Signs - 8 hr 04/12/25/18 12/25/18 08:49 09:14 11:25 Temperature 98.2 F Pulse Rate 54 Respiratory 18 18 18 Rate Blood Pressure 113/57 (mmHg) O2 Sat by Pulse 93 Oximetry 12/25/18 12/25/18 12/25/18 11:57 13:45 15:29 Temperature 98.1 F Pulse Rate 57 Respiratory 18 18 16 Rate Blood Pressure 100/45 (mmHg) O2 Sat by Pulse 93 Oximetry 12/25/18 16:00 Temperature Pulse Rate Respiratory Rate Blood Pressure (mmHg) O2 Sat by Pulse 93 Oximetry Oxygen Devices in Use Now: None, CPAP Appearance: 58 yo male with cerebral palsy - very friendly, A+O x3 in NAD Eyes: No Scleral Icterus, PERRLA Ears/Nose/Mouth/Throat: Mucous Membranes Moist Neck: NL Appearance and Movements; NL JVP Respiratory: Symmetrical Chest Expansion and Respiratory Effort, Clear to Auscultation Cardiovascular: NL Sounds; No Murmurs; No JVD, RRR, No Edema Abdominal: NL Sounds; No Tenderness; No Distention, - - obese Extremities: - - right LE attached to cryo unit with knee immobilizer Neurological: Alert and Oriented x 3 Lines/Tubes/Other Access: Clean, Dry and Intact Peripheral IV Nutrition: Taking PO's Result Diagrams: 12/25/18 08:08 12/25/18 08:08 Additional Lab and Data: Laboratory Results - last 24 hr 12/21/18 12/21/18 12/22/18 16:52 21:15 07:38 POC Glucose (mg/dL) 109 H 141 H 38 L* Glucose Meter Confirm 12/22/18 12/22/18 12/22/18 07:51 08:40 12:02 POC Glucose (mg/dL) 97 289 H Glucose Meter Confirm 58 L Microbiology and Other Data: Microbiology 12/17/18 02:15 Urine Urine Culture - Final No Growth (<1,000 CFU/mL) Assess/Plan/Problems-Billing Assessment: Mr. Houston is a 58 yo male with a PMH of cerebral palsy, left hemiplegia, hypertension, depression, CHUY on CPAP who was admitted on for a right patellar tendon repair secondary to fall from wheelchair who is improving slowly with PT/ OT but is awaiting placement. - Patient Problems (1) Patellar tendon rupture Comment: - POD #9 s/p repair - Management per ortho - TTWB R LE for transfers, patient is wheelchair bound, immobilizer on at all times - Continue pain meds with bowel regimen - ASA for DVT proph per ortho (2) COPD (chronic obstructive pulmonary disease) Comment: - Stable - Hx of COPD and uses supplemental oxygen at home, therefore, at baseline. - Encouraged flutter valve (3) Involuntary movements Comment: - Mainly of right arm, long documented history of this with negative EEGs and ambulatory EEGs going back 20 years. EEG repeated - negative - Neurology eval appreciated, agree that this is unlikely to be epileptic seizures. CT brain negative. Dr. carter would like to see him in f/u after discharge (4) Cerebral palsy Comment: - Continue baclofen, diazepam (5) Diabetes Comment: - Occasional morning lows. BG was low at 38 3 days ago, lantus decreased from home dose of 85 to 70 unit. - Continue SSI - Hold tradjenta and metformin until discharge (6) Hyperlipidemia Comment: - Continue atorvastatin (7) Hypertension Comment: - Stable - continue triamterine/hctz and lisinopril 12/19 (8) Hypothyroidism Comment: - Continue levothyroxine (9) CHUY (obstructive sleep apnea) Comment: - Continue cpap (10) DVT prophylaxis Comment: - Aspirin per ortho. (11) Full code status Comment: Status and Disposition: Inpatient with disposition per ortho. Awaiting insurance auth for short term rehab.
[2018-12-25] MEDS: Atorvastatin* 80 MG TAB PO SCH (21:02)
[2018-12-25] MEDS: Insulin GLARGINE(*) 1 UNITS UNIT SUBCUT SCH (21:03)
[2018-12-26] MEDS: Acetaminophen TAB* 325 MG PO SCH ×2 (05:30→13:25)
[2018-12-26] MEDS: Levothyroxine TAB* 137 MCG TAB PO SCH (06:00)
[2018-12-26 07:05] LABS: ABS Basophils 0.1 10^3/ul (0-0.2); ABS Eosinophils 0.3 10^3/ul (0-0.6); ABS Lymphocytes 1.8 10^3/ul (1.0-4.8); ABS Monocytes 0.8 10^3/ul (0-0.8); ABS Nucleated RBC 0 10^3/ul; Eosinophil % 2.3 %; Hematocrit 35 % (36-46); Hemoglobin 11.3 g/dL (14.0-18.0); Lymphocyte % 14.8 %; Mean Corpuscular HGB Conc 32 g/dL (31-36); Mean Corpuscular Hemoglobin 29 pg (27-31); Mean Corpuscular Volume 89 fL (80-94); Mean Platelet Volume 7.4 fL (7.4-10.4); Nucleated Red Blood Cells % 0; Platelet Count 448 10^3/uL (150-450); Red Blood Count 3.96 10^6 /uL (4.18-5.48); Red Cell Distribution Width 15 % (10.5-15); White Blood Count 11.9 10^3/uL (3.5-10.8)
[2018-12-26 07:28] LABS: BUN/Creatinine Ratio 26.9 (8-20); Calcium 9.6 mg/dL (8.6-10.3); EGFR African American 65.8 (>60); EGFR Non-African American 54.4 (>60); Potassium 4.3 mmol/L (3.5-5.0)
[2018-12-26] MEDS: Insulin LISPRO* 1 UNITS UNIT SUBCUT SCH ×2 (08:12→13:26)
[2018-12-26] MEDS: Magnesium Hydroxide LIQ* 30 ML UDC PO SCH (08:41)
[2018-12-26] MEDS: Pantoprazole TAB * 40 MG TAB PO SCH (08:41)
[2018-12-26] MEDS: Lisinopril TAB* 10 MG PO SCH (08:42)
[2018-12-26] MEDS: Gabapentin CAP(*) 300 MG PO SCH ×2 (08:42→13:25)
[2018-12-26] MEDS: Baclofen TAB* 20 MG PO SCH ×2 (08:42→13:25)
[2018-12-26] MEDS: Aspirin TAB* 325 MG PO SCH (08:42)
[2018-12-26] MEDS: Docusate CAP* 100 MG PO SCH (08:42)
[2018-12-26] MEDS: Sertraline* 100 MG TAB PO SCH (08:42)
[2018-12-26] MEDS: Calcium Polycarbophil TAB* 625 MG PO SCH (08:43)
[2018-12-26] MEDS: Triamterene/HCTZ 37.5-25 MG* CAP PO SCH (08:43)
[2018-12-26] MEDS: Pramipexole TAB* 0.125 MG PO SCH (08:43)
--- NOTE | 2018-12-26 11:49 | DS ---
Orthopedic Discharge Summary - Discharge Summary Date of Admission:12/16/18 Date of Discharge: 12/26/18 Date of Surgery: 12/17/18 Attending Orthopedic Provider: Dr Whalen Pre-operative Diagnosis: right patellar tendon rupture Operative Procedure: right patellar tendon repair Condition of Patient: stable History: SIENNA CRONIN is a 58 year old M with patellar tendon rupture requiring repair, underwent surgical repair on 12/17/18. Hospital Course: SIENNA was admitted to [facility] on 12/16/18. Patient underwent a [right patellar tendon repair] without complication followed by a brief recovery in PACU and transfer to the Short Stay Surgical Unit in stable condition. Incision remained CDI throughout his stay without erythema or discharge. On 12/26/18 dressing was changed and incision was CDI without erythema or discharge, he was in his immobilizer, DF?PF intact, DP2+ calves supple and nontender. Our hospitalist service, physical therapy and occupational therapy also participated in this patients care. Hospitalist service decreased his lantus from from dose of 85 units to 70 units due to hypoglycemia. Sugars need to be monitored at rehab as well as st discharge to home as he resumes more of his baseline diet. Discharge Medications Medication Instructions Recorded Confirmed Type Aspirin [Aspir 81] 81 mg PO QAM 09/08/13 12/16/18 History Atorvastatin* [Lipitor 80 MG*] 80 mg PO BEDTIME 09/08/13 12/16/18 History Ibuprofen TAB* [Advil TAB*] 400 mg PO Q8H PRN 09/08/13 12/16/18 History Levothyroxine TAB* [Synthroid 137 137 mcg PO QAM 09/08/13 12/16/18 History MCG TAB*] Lisinopril TAB* [Prinivil TAB 10 10 mg PO QAM 09/08/13 12/16/18 History MG*] Multivitamin [Multivitamins] 1 tab PO QAM 09/08/13 12/16/18 History Omeprazole CAP (NF) [Prilosec CAP* 20 mg PO BID 09/08/13 12/16/18 History 20 MG] Pramipexole Di-HCl [Mirapex] 0.25 mg PO QAM 09/08/13 12/16/18 History Triamterene/HCTZ 37.5-25 MG* 1 cap PO QAM 09/08/13 12/16/18 History [Dyazide CAP*] metFORMIN* [Glucophage 500 MG TAB 500 mg PO TID 09/08/13 12/16/18 History *] Linagliptin (NF) [Tradjenta (NF)] 5 mg PO QPM 05/04/16 12/16/18 History Acetaminophen [Mapap] 500 mg PO Q8HR PRN 12/15/18 12/16/18 History Baclofen 20 mg PO TID 12/15/18 12/16/18 History Calcium Polycarbophil [Fiber Lax] 625 mg PO QAM 12/15/18 12/16/18 History Docusate Sodium [Colace] 1 - 2 tab PO BID PRN 12/15/18 12/16/18 History Gabapentin 300 mg PO TID 12/15/18 12/16/18 History Insulin Glargine,Hum.rec.anlog 85 unit SC BEDTIME 12/15/18 12/16/18 History [Lantus] Meloxicam [Mobic] 15 mg PO QAM 12/15/18 12/16/18 History Sertraline HCl [Zoloft] 200 mg PO QAM 12/15/18 12/16/18 History Sildenafil (NF) [Viagra (NF)] 25 mg PO SEE INSTRUCTIONS PRN 12/15/18 12/16/18 History clonazePAM [Clonazepam] 0.5 mg PO TID 12/15/18 12/16/18 History hydrOXYzine HCl [Hydroxyzine HCl] 0.5 - 1 tab PO BID PRN 12/15/18 12/16/18 History Acetaminophen TAB* [Tylenol TAB*] 975 mg PO Q8H tab 12/26/18 Rx Aspirin TAB* [Aspirin 325 MG TAB*] 325 mg PO 0900,2100 #0 tab 12/26/18 Rx Docusate CAP* [Colace Cap*] 100 mg PO BID cap 12/26/18 Rx Insulin GLARGINE(*) [Lantus(*)] 70 units SUBCUT BEDTIME unit 12/26/18 Rx oxyCODONE/Acetamin 5/325 MG* 1 tab PO Q4H PRN tab MDD 8 12/26/18 Rx [Percocet 5/325 TAB*] oxyCODONE/Acetamin 5/325 MG* 2 tab PO Q4H PRN tab MDD 10 12/26/18 Rx [Percocet 5/325 TAB*] Discharge to [facility] in stable condition 12/26/18 Discharge Instruction Toe touch weight bearing right lower extremity for transfers only, otherwise nonweightbearing Wear immobilizer at all times to keep leg straight. Dry dressing change every other day, keep knee straight at all times Aspirin 325 mg po every 12 hours for DVT prophylaxis Follow up with Dr Whalen 14 days post op, call for appointment For redness, drainage, increased pain, fever or chills call the orthopedic office For chest pain or shortness of breath go to the emergency room Orthopedics: [phone]
[2018-12-26 12:04] VITALS: BP 113/56
== END 2018-12-26 16:35 | DRG 317 ==
LOC: OR 15:04 → SSU 22:03
PROVIDERS: ADMIT Orthopaedic Surgery; ATTEND Orthopaedic Surgery
PROC: 0QDD0ZZ Extraction of Right Patella, Open Approach (ICD-10-PCS; 2018-12-16)
PROC: 0LQQ0ZZ Repair Right Knee Tendon, Open Approach (ICD-10-PCS; principal; 2018-12-16 16:00)
DX: S76.111A Strain of right quadriceps muscle, fascia and tendon, initial encounter (principal); G81.94 Hemiplegia, unspecified affecting left nondominant side; N17.9 Acute kidney failure, unspecified; S82.001A Unspecified fracture of right patella, initial encounter for closed fracture; W05.0XXA Fall from non-moving wheelchair, initial encounter; F31.9 Bipolar disorder, unspecified; M19.90 Unspecified osteoarthritis, unspecified site; E03.9 Hypothyroidism, unspecified; I10 Essential (primary) hypertension; R53.1 Weakness; H54.62 Unqualified visual loss, left eye, normal vision right eye; H91.90 Unspecified hearing loss, unspecified ear; N52.9 Male erectile dysfunction, unspecified; E78.5 Hyperlipidemia, unspecified; G40.909 Epilepsy, unspecified, not intractable, without status epilepticus; K21.9 Gastro-esophageal reflux disease without esophagitis; H40.9 Unspecified glaucoma; G47.33 Obstructive sleep apnea (adult) (pediatric); M41.9 Scoliosis, unspecified; F41.9 Anxiety disorder, unspecified; J44.9 Chronic obstructive pulmonary disease, unspecified; F43.10 Post-traumatic stress disorder, unspecified; Y92.009 Unspecified place in unspecified non-institutional (private) residence as the place of occurrence of the external cause; Z88.6 Allergy status to analgesic agent; Z88.5 Allergy status to narcotic agent; Z88.8 Allergy status to other drugs, medicaments and biological substances; Z98.1 Arthrodesis status; Z87.891 Personal history of nicotine dependence; E11.649 Type 2 diabetes mellitus with hypoglycemia without coma; R25.9 Unspecified abnormal involuntary movements; Z99.3 Dependence on wheelchair; Z79.82 Long term (current) use of aspirin; Z79.4 Long term (current) use of insulin
CPT/HCPCS: 36415; 70450; 74019; 80048; 82947; 84132; 84484; 85014; 85018; 85025; 85049; 87086; 93005; 94660; 95819; A9270-GY; G8978-GP-CM; G8979-GP-CJ; J2250; J2270; J2704; J3010; J3360